=== PATIENT | female | born 1950 | race Two or more races ===

== ENCOUNTER 2018-09-12 13:09 | Emergency (ER) | payer MEDICARE, OTHER ==
[~2018-09-12] VITALS: Ht 165.1 cm; Wt 80.0 kg
[2018-09-12 13:17] VITALS: Ht 165.1 cm; Wt 80.0 kg
--- NOTE | 2018-09-12 13:20 | ERD ---
ER Documentation Chief Complaint Chief Complaint FROM SNF FOR EVAL OF CHRONIC LEFT HIP PAIN HPI The patient is a 68-year-old female, presenting to the ER from a skilled nursing home because of chronic left hip pain. She was taking Percocet and Soma with good response, however her doctor stopped them about 9 months ago. Her new doctor has been prescribing Orefield 10 mg twice a day for the last 9 months. Initially they have been working however they are not working anymore. She is requesting stronger pain medication, denies any trauma, denies cough, neck pain, chest pain, abdominal pain, vomiting, dysuria, diarrhea. She does not smoke, she mostly uses a wheelchair Past medical history: Chronic low back pain, anxiety, hypertension, hypothyroidism, diabetes mellitus, bipolar, dyslipidemia, neuropathy Past surgical history: Left hip and right leg ROS All systems reviewed and are negative except as per history of present illness. Medications Home Meds Reported Medications Multivit with Iron-Minerals (Unicomplex-M) 1 Each Tablet, 1 EACH PO DAILY, TAB 09/12/18 Cran/Vitc/Mannose/Inulin/Brom (Uti-Stat Liquid) 3,875 Mg/30 Ml Liquid, 3875 MG PO BID 09/12/18 Ascorbic Acid* (Vitamin C*) 500 Mg Capsule.sa, 500 MG PO DAILY, CAP 09/12/18 Zolpidem Tartrate* (Zolpidem Tartrate*) 5 Mg Tablet, 5 MG PO QHS PRN for INSOMNIA, #30 TAB 09/12/18 Trazodone Hcl* (Trazodone Hcl*) 100 Mg Tablet, 100 MG PO QHS, #30 TAB 09/12/18 Simvastatin* (Zocor*) 40 Mg Tablet, 40 MG PO QHS, #30 TAB 09/12/18 Quetiapine Fumarate* (Quetiapine Fumarate*) 50 Mg Tablet, 50 MG PO HS, TAB 09/12/18 Calcium Carbonate/Vitamin D3 (Oysco 500+D Tablet) 1 Each Tablet, 1 EACH PO DAILY, TAB 09/12/18 Magnesium Hydroxide* (Milk Of Magnesia*) 400 Mg/5 Ml Oral.susp, 30 ML PO DAILY, ML 09/12/18 Metoprolol Tartrate* (Lopressor*) 25 Mg Tab, 25 MG PO BID, #60 TAB 09/12/18 Metformin Hcl* (Metformin Hcl*) 1,000 Mg Tablet, 1000 MG PO WITH BREAKFAST DINNE, #60 TAB 09/12/18 Loratadine* (Loratadine*) 10 Mg Tablet, 10 MG PO DAILY, #30 TAB 09/12/18 Lisinopril* (Lisinopril*) 5 Mg Tablet, 5 MG PO DAILY, #30 TAB 09/12/18 Levothyroxine Sodium* (Levoxyl*) 200 Mcg Tablet, 200 MCG PO BEFORE BREAKFAST, #30 TAB 09/12/18 Bisacodyl* (Bisacodyl*) 5 Mg Tablet.dr, 5 MG PO DAILY, TAB 09/12/18 Fluticasone-Vilanterol (Breo Ellipta Inhaler) 100-25 Mcg/Actuation Aer.pow.ba, 1 PUFF INHALATION DAILY, #1 INHALER 09/12/18 Citalopram Hydrobromide* (Celexa*) 20 Mg Tablet, 20 MG PO DAILY, #30 TAB 09/12/18 Clonidine (CLONIDINE) 1 Each Patch.tdwk, 1 PATCH.WK TD Q7D, #4 PATCH.WK 0.1MG 09/12/18 Clonidine Hcl* (Clonidine Hcl*) 0.1 Mg Tab, 0.1 MG PO Q8 PRN for ELEVATED BLOOD PRESSURE, TAB FOR SBP >160 09/12/18 Docusate Sodium* (Dok*) 100 Mg Tablet, 100 MG PO BID, #60 CAP 09/12/18 Na Phos,M-B/Na Phos,Di-Ba (ENEMA [id number]) 133 Ml Enema, 133 ML RC EVERY 3 DAYS PRN for CONSTIPATION, ENEMA 09/12/18 Esomeprazole Mag Trihydrate (Nexium) 40 Mg Capsule.dr, 40 MG PO DAILY, #30 CAP 09/12/18 Furosemide* (Furosemide*) 20 Mg Tablet, 20 MG PO DAILY, #60 TAB HOLD FOR SBP<110 09/12/18 Gabapentin* (Gabapentin*) 300 Mg Capsule, 300 MG PO TID, #90 CAP 09/12/18 Bisacodyl (Dulcolax) 10 Mg Supp.rect, 10 MG RC PRN PRN for CONSTIPATION, SUPP.RECT 09/12/18 Baclofen* (Baclofen*) 10 Mg Tablet, 10 MG PO TID, TAB 09/12/18 Aspirin (Low Dose Aspirin) 81 Mg Tablet.dr, 81 MG PO DAILY, #30 TAB 09/12/18 Amlodipine Besylate* (Norvasc*) 5 Mg Tablet, 5 MG PO DAILY, TAB HOLD FOR SBP <110 09/12/18 Allergies Allergies: Coded Allergies: Penicillins (Verified Allergy, Unknown, 09/12/18) amoxicillin (Verified Allergy, Unknown, 09/12/18) Uncoded Allergies: ERYTHROMYCIN (Allergy, Unknown, 09/12/18) Physical Exam Vitals Vital Signs Date Temp Pulse Resp B/P (MAP) Pulse Ox O2 O2 Flow FiO2 Time Delivery Rate 09/12/18 98.4 84 16 143/54 99 Room Air 16:24 (83) 09/12/18 76 20 144/67 99 Room Air 15:15 (92) 09/12/18 98.4 90 16 154/72 99 13:17 (99) Physical Exam Const: No acute distress. Head: Atraumatic. Eyes: Normal Conjunctiva. ENT: Normal External Ears, Nose and Mouth. Neck: Full range of motion. No meningismus. Resp: Clear to auscultation bilaterally. Cardio: Regular rate and rhythm. Abd: Soft, non distended, normal bowel sounds, non tender. Skin: No petechiae or rashes. Back: No midline or flank tenderness. Ext: No cyanosis, or edema. Sensitive to touch, mild and vague bilateral calf tenderness Neur: Awake and alert. No focal deficit Psych: Normal Mood and Affect. Results 24 hrs Current Medications Medications Dose Sig/Mehdi Start Time Status Last (Trade) Ordered Route PRN Stop Time Admin Dose Reason Admin Oxycodone/ 1 tab ONCE ONCE 09/12/18 DC 09/12/18 Acetaminophen PO 14:00 14:42 (Endocet 09/12/18 14:01 ()) 350 mg ONCE ONCE 09/12/18 DC 09/12/18 Carisoprodol PO 14:00 14:42 (Soma) 09/12/18 14:01 Procedures/[place] [id number] Radiology Main Line: [phone] DIAGNOSTIC IMAGING REPORT Patient: ESSENCE GALLAGHER : 1950 Age: 68 Sex: F MR #: [id number] DOS: 09/12/18 1333 Ordering MD: BRIDGET KELLEY MD Location: E/R Room/Bed: PROCEDURE: US Lower extremity Venous. CLINICAL INDICATION: Bilateral lower extremity edema TECHNIQUE: Multiple sonographic images of the bilateral lower extremity deep venous system was obtained utilizing grayscale, color-flow, compressive sonography and doppler imaging with augmentation. The images were reviewed on a PACS workstation. COMPARISON: None. FINDINGS: There is normal compressibility and flow within the bilateral common femoral, femoral , posterior tibial and popliteal veins. RPTAT: AA IMPRESSION: No sonographic evidence for deep venous thrombosis. .Chris Kay MD, MD Date Time Electronically viewed and signed by .Chris Kay MD, MD on 09/12/2018 15:10 .S/ CC: BRIDGET KELLEY MD [id number] MEDICAL MAKING DECISION: The patient is a 68-year-old female, presenting with chronic left hip pain, was treated with Orefield 10 mg p.o. and Soma for her chronic pain with good response, stable for present follow-up The differential diagnoses considered include but are not limited to septic joint, cellulitis, DVT, dehydration Consultation: I discussed the patient with her physician Dr. Stafford, who was made aware of the patient condition and the need for increased pain medication and pain management referral Departure Diagnosis: Primary Impression: Chronic pain Condition: Good Comments I discussed the findings with the patient. I advised the patient to follow-up with the primary physician in about 2-3 days, sooner if needed and return if any concern. Disclaimer: Inadvertent spelling and grammatical errors are likely due to EHR/dictation software use and do not reflect on the overall quality of patient care. Also, please note that the electronic time recorded on this note does not necessarily reflect the actual time of the patient encounter. BRIDGET KELLEY MD Sep 12, 2018 13:20
[2018-09-12] MEDS ORDERED: CARISOPRODOL 350 MG TAB PO ONE (14:00)
[2018-09-12] MEDS ORDERED: OXYCODONE/ACETAMINOPHEN (10/325) TAB PO ONE (14:00)
[2018-09-12] MEDS ORDERED: AMLO5TAB4 PO (14:23)
[2018-09-12] MEDS ORDERED: ASPI81TA52 PO (14:23)
[2018-09-12] MEDS ORDERED: BACL10TA PO (14:24)
[2018-09-12] MEDS ORDERED: BISA10SU55 RC (14:25)
[2018-09-12] MEDS ORDERED: FURO20TA3 PO (14:26)
[2018-09-12] MEDS ORDERED: GABA300C16 PO (14:26)
[2018-09-12] MEDS ORDERED: DOCU100T PO (14:27)
[2018-09-12] MEDS ORDERED: NA P133E10 RC (14:27)
[2018-09-12] MEDS ORDERED: ESOM40CA PO (14:27)
[2018-09-12] MEDS ORDERED: CLON-379 PO (14:29)
[2018-09-12] MEDS ORDERED: CLON1PAT TD (14:31)
[2018-09-12] MEDS ORDERED: CITA20TA11 PO (14:31)
[2018-09-12] MEDS ORDERED: FLUT1AER INHALATION (14:32)
[2018-09-12] MEDS ORDERED: BISA5TAB6 PO (14:33)
[2018-09-12] MEDS ORDERED: LEVO200T45 PO (14:37)
[2018-09-12] MEDS ORDERED: LISI-313 PO (14:37)
[2018-09-12] MEDS ORDERED: LORA10TA3 PO (14:38)
[2018-09-12] MEDS ORDERED: METF100010 PO (14:38)
[2018-09-12] MEDS ORDERED: METO-448 PO (14:39)
[2018-09-12] MEDS ORDERED: CALC1TAB79 PO (14:41)
[2018-09-12] MEDS ORDERED: MAGN400O19 PO (14:41)
[2018-09-12] MEDS ORDERED: QUET50TA22 PO (14:42)
[2018-09-12] MEDS ORDERED: SIMV40TA2 PO (14:43)
[2018-09-12] MEDS ORDERED: TRA100 PO (14:43)
[2018-09-12] MEDS ORDERED: ASCO500C7 PO (14:44)
[2018-09-12] MEDS ORDERED: ZOLP5TAB7 PO (14:44)
[2018-09-12] MEDS ORDERED: CRAN3875 PO (14:44)
[2018-09-12] MEDS ORDERED: MULT1TAB67 PO (14:45)
[2018-09-12 16:24] VITALS: BP 143/54; PULSE 84; RESP 16
== END 2018-09-12 18:31 | disposition home or self-care (01) ==
LOC: E/R 13:09
DX: M25.552 Pain in left hip (principal); I10 Essential (primary) hypertension; E03.9 Hypothyroidism, unspecified; E11.9 Type 2 diabetes mellitus without complications; Z79.84 Long term (current) use of oral hypoglycemic drugs; Z79.82 Long term (current) use of aspirin
CPT/HCPCS: 93970

== ENCOUNTER 2019-01-17 20:58 | Inpatient (IN) | payer MEDICARE, OTHER ==
[~2019-01-17] VITALS: Ht 162.6 cm; Wt 74.1 kg
[~2019-01-17 20:58] MED LIST: ACET-2047 PO; AMLO5TAB4 PO; ASCO500C7 PO; ASPI81TA52 PO; BACL10TA PO; BISA10SU55 RC; BISA5TAB6 PO; CALC1TAB79 PO; CITA20TA11 PO; CLON-379 PO; CLON1PAT TD; CRAN3875 PO; CRAN425C6 PO; DOCU100T PO; ESOM40CA PO; FLUT1AER INHALATION; FURO20TA3 PO; GABA300C16 PO; HYDR-3609 PO; HYDR-4011 PO; LEVO200T45 PO; LEVO50TA71 PO; LISI-313 PO; LORA10TA3 PO; LUBI24CA7 PO; MAGN400O19 PO; METF100010 PO; METO-448 PO; MULT-542 PO; MULT1TAB67 PO; NA P133E10 RC; NITR0.4T39 SL; ONDA4TAB8 PO; PANT40TA3 PO; QUET50TA22 PO; SIMV20TA PO; SIMV40TA2 PO; TRA100 PO; UDFER GTB; ZINC220C5 PO; ZOLP5TAB PO; ZOLP5TAB7 PO
--- NOTE | 2019-01-17 21:22 | ERD ---
ER Documentation Chief Complaint Chief Complaint Generalized Weakness, Poor intake HPI The patient is a 68-year-old female, presenting to the ER because of generalized weakness, decreased appetite bilateral leg pain. She is a very poor historian, very somnolent but arousable. He denies fever, chills, neck pain, chest pain, dyspnea, abdominal pain, vomiting, dysuria, diarrhea. She is wheelchair-bound, from assisted living home. She denies smoking or drinking Medical history: Hypothyroidism, diabetes mellitus, chronic left hip pain, anxiety, hypertension, bipolar, dyslipidemia ROS All systems reviewed and are negative except as per history of present illness. Medications Home Meds Reported Medications Multivit with Iron-Minerals (Unicomplex-M) 1 Each Tablet, 1 EACH PO DAILY, TAB 09/12/18 Cran/Vitc/Mannose/Inulin/Brom (Uti-Stat Liquid) 3,875 Mg/30 Ml Liquid, 3875 MG PO BID 09/12/18 Ascorbic Acid* (Vitamin C*) 500 Mg Capsule.sa, 500 MG PO DAILY, CAP 09/12/18 Zolpidem Tartrate* (Zolpidem Tartrate*) 5 Mg Tablet, 5 MG PO QHS PRN for INSOMNIA, #30 TAB 09/12/18 Trazodone Hcl* (Trazodone Hcl*) 100 Mg Tablet, 100 MG PO QHS, #30 TAB 09/12/18 Simvastatin* (Zocor*) 40 Mg Tablet, 40 MG PO QHS, #30 TAB 09/12/18 Quetiapine Fumarate* (Quetiapine Fumarate*) 50 Mg Tablet, 50 MG PO HS, TAB 09/12/18 Calcium Carbonate/Vitamin D3 (Oysco 500+D Tablet) 1 Each Tablet, 1 EACH PO DAILY, TAB 09/12/18 Magnesium Hydroxide* (Milk Of Magnesia*) 400 Mg/5 Ml Oral.susp, 30 ML PO DAILY, ML 09/12/18 Metoprolol Tartrate* (Lopressor*) 25 Mg Tab, 25 MG PO BID, #60 TAB 09/12/18 Metformin Hcl* (Metformin Hcl*) 1,000 Mg Tablet, 1000 MG PO WITH BREAKFAST DINNE, #60 TAB 09/12/18 Loratadine* (Loratadine*) 10 Mg Tablet, 10 MG PO DAILY, #30 TAB 09/12/18 Lisinopril* (Lisinopril*) 5 Mg Tablet, 5 MG PO DAILY, #30 TAB 09/12/18 Levothyroxine Sodium* (Levoxyl*) 200 Mcg Tablet, 200 MCG PO BEFORE BREAKFAST, #30 TAB 09/12/18 Bisacodyl* (Bisacodyl*) 5 Mg Tablet.dr, 5 MG PO DAILY, TAB 09/12/18 Fluticasone-Vilanterol (Breo Ellipta Inhaler) 100-25 Mcg/Actuation Aer.pow.ba, 1 PUFF INHALATION DAILY, #1 INHALER 09/12/18 Citalopram Hydrobromide* (Celexa*) 20 Mg Tablet, 20 MG PO DAILY, #30 TAB 09/12/18 Clonidine (CLONIDINE) 1 Each Patch.tdwk, 1 PATCH.WK TD Q7D, #4 PATCH.WK 0.1MG 09/12/18 Clonidine Hcl* (Clonidine Hcl*) 0.1 Mg Tab, 0.1 MG PO Q8 PRN for ELEVATED BLOOD PRESSURE, TAB FOR SBP >160 09/12/18 Docusate Sodium* (Dok*) 100 Mg Tablet, 100 MG PO BID, #60 CAP 09/12/18 Na Phos,M-B/Na Phos,Di-Ba (ENEMA [id number]) 133 Ml Enema, 133 ML RC EVERY 3 DAYS PRN for CONSTIPATION, ENEMA 09/12/18 Esomeprazole Mag Trihydrate (Nexium) 40 Mg Capsule.dr, 40 MG PO DAILY, #30 CAP 09/12/18 Furosemide* (Furosemide*) 20 Mg Tablet, 20 MG PO DAILY, #60 TAB HOLD FOR SBP<110 09/12/18 Gabapentin* (Gabapentin*) 300 Mg Capsule, 300 MG PO TID, #90 CAP 09/12/18 Bisacodyl (Dulcolax) 10 Mg Supp.rect, 10 MG RC PRN PRN for CONSTIPATION, SUPP.RECT 09/12/18 Baclofen* (Baclofen*) 10 Mg Tablet, 10 MG PO TID, TAB 09/12/18 Aspirin (Low Dose Aspirin) 81 Mg Tablet.dr, 81 MG PO DAILY, #30 TAB 09/12/18 Amlodipine Besylate* (Norvasc*) 5 Mg Tablet, 5 MG PO DAILY, TAB HOLD FOR SBP <110 09/12/18 Allergies Allergies: Coded Allergies: Penicillins (Verified Allergy, Unknown, 09/12/18) amoxicillin (Verified Allergy, Unknown, 09/12/18) Uncoded Allergies: ERYTHROMYCIN (Allergy, Unknown, 09/12/18) PMhx/Soc Hx Miscellaneous Medical Probl: Yes (THYROID, DM) Hx Alcohol Use: No Hx Substance Use: No Hx Tobacco Use: No Physical Exam Vitals Vital Signs Date Temp Pulse Resp B/P (MAP) Pulse Ox O2 O2 Flow FiO2 Time Delivery Rate 01/17/19 98.9 75 97/44 (61) 100 Nasal 2.0 23:57 Cannula 01/17/19 99.1 80 14 92/37 (55) 98 Nasal 2.0 22:20 Cannula 01/17/19 98.3 80 11 101/47 100 21:07 (65) Physical Exam Const: No acute distress. Dehydrated Head: Atraumatic. Eyes: Normal Conjunctiva. ENT: Normal External Ears, Nose and Mouth. Neck: Full range of motion. No meningismus. Resp: Clear to auscultation bilaterally. Cardio: Regular rate and rhythm. Abd: Soft, non distended, normal bowel sounds, non tender. Skin: No petechiae or rashes. Back: No midline or flank tenderness. Ext: No cyanosis, or edema. No calf tenderness Neur: Awake and alert. No focal deficit Psych: Normal Mood and Affect. Result Diagram: 01/17/19220101/17/192201 Results 24 hrs Laboratory Tests Test 01/17/19 22:02 01/17/19 22:36 01/17/19 23:33 White Blood Count 6.1 10^3/ul Red Blood Count 2.52 10^6/ul Hemoglobin 8.1 g/dl Hematocrit 24.8 % Mean Corpuscular Volume 98.4 fl Mean Corpuscular Hemoglobin 32.1 pg Mean Corpuscular 32.7 g/dl Hemoglobin Concent Red Cell Distribution Width 13.0 % Platelet Count 106 10^3/UL Mean Platelet Volume 10.7 fl Immature Granulocytes % 0.700 % Neutrophils % 69.5 % Lymphocytes % 20.4 % Monocytes % 6.6 % Eosinophils % 2.6 % Basophils % 0.2 % Nucleated Red Blood Cells % 0.0 /100WBC Immature Granulocytes # 0.040 10^3/ul Neutrophils # 4.2 10^3/ul Lymphocytes # 1.2 10^3/ul Monocytes # 0.4 10^3/ul Eosinophils # 0.2 10^3/ul Basophils # 0.0 10^3/ul Nucleated Red Blood Cells # 0.0 10^3/ul Prothrombin Time 13.1 Sec Prothrombin Time Ratio 1.0 INR International 0.98 Normalized Ratio Activated Partial Thromboplast 28.3 Sec Time Sodium Level 137 mmol/L Potassium Level 5.6 mmol/L Chloride Level 109 mmol/L Carbon Dioxide Level 17 mmol/L Anion Gap 11 Blood Urea Nitrogen 60 mg/dl Creatinine 4.56 mg/dl Est Glomerular Filtrat 10 mL/min Rate mL/min Glucose Level 99 mg/dl Calcium Level 8.9 mg/dl Total Bilirubin 0.2 mg/dl Direct Bilirubin 0.00 mg/dl Indirect Bilirubin 0.2 mg/dl Aspartate Amino 35 IU/L Transf (AST/SGOT) Alanine 31 IU/L Aminotransferase (ALT/SGPT) Alkaline Phosphatase 88 IU/L Troponin I < 0.012 ng/ml Total Protein 7.4 g/dl Albumin 3.5 g/dl Globulin 3.90 g/dl Albumin/Globulin Ratio 0.89 Thyroid Stimulating 1.170 MIU/L Hormone (TSH) Ethyl Alcohol Level < 10.0 mg/dl POC Venous Lactate 1.1 mmol/L Urine Color YELLOW Urine Clarity TURBID Urine pH 5.0 Urine Specific [place] 1.008 Urine Ketones TRACE mg/dL Urine Nitrite NEGATIVE mg/dL Urine Bilirubin NEGATIVE mg/dL Urine Urobilinogen NEGATIVE mg/dL Urine Leukocyte Esterase 3+ Esther/ul Urine Microscopic RBC 25 /HPF Urine Microscopic WBC > 182 /HPF Urine Bacteria MANY /HPF Urine Mucus FEW /HPF Urine Hemoglobin 1+ mg/dL Urine Glucose NEGATIVE mg/dL Urine Total Protein 2+ mg/dl Urine Opiates Screen POSITIVE Urine Barbiturates NEGATIVE Urine Amphetamines Screen NEGATIVE Urine Benzodiazepines Screen NEGATIVE Urine Cocaine Screen NEGATIVE Urine Cannabinoids NEGATIVE Current Medications Medications Dose Sig/Mehdi Start Time Status Last (Trade) Ordered Route PRN Stop Time Admin Dose Reason Admin Sodium 2,110 ml BOLUS OVER 2 01/17/19 DC 01/17/19 Chloride HOURS STAT 21:50 22:19 (NS) IV* 01/17/19 21:52 Sodium 30 gm ONCE ONCE 01/17/19 DC Polystyrene PO 23:00 Sulfonate 01/17/19 23:01 (Kayexalate) Sodium 1,000 ml @ [id number] IV 01/17/19 Chloride 70 mls/hr 22:57 IV Flush 3 ml PER 01/17/19 (NS 3 ml) PROTOCOL IV 23:00 Ondansetron 4 mg Q6H PRN 01/17/19 HCl (Zofran IV 23:00 Inj) NAUSEA/VOMITI NG 650 mg Q6H PRN 01/17/19 Acetaminophen PO .PAIN 1-3 23:00 (Tylenol OR TEMP Tab) 1 tab Q6H PRN 01/17/19 Acetaminophen PO .PAIN 4-6 23:00 / Hydrocodone Bitart ([place] (5/325)) Morphine 2 mg Q4H PRN 01/17/19 Sulfate IV .PAIN 23:00 (morphine) 7-10 Docusate 100 mg Q12H PRN 01/17/19 Sodium PO 23:00 (Colace) .CONSTIPATION Magnesium 30 ml DAILY PRN 01/17/19 Hydroxide PO 23:00 (Milk Of Mag) .CONSTIPATION 40 mg DAILY@06 01/18/19 Pantoprazole PO 06:00 (Protonix Tab) Heparin 5,000 unit Q12 SC 01/18/19 Sodium 09:00 (Porcine) (Heparin (5000 Units/1ml)) Aspirin 81 mg DAILY PO 01/18/19 (Halfprin) 09:00 Citalopram 20 mg DAILY PO 01/18/19 Hydrobromide 09:00 (Celexa) Docusate 100 mg BID PO 01/18/19 Sodium 09:00 (Colace) 1 inh DAILY INH 01/18/19 Fluticasone/ 09:00 Vilanterol (Breo Ellipta 100-25 Mcg Inh) Gabapentin 300 mg TID PO 01/18/19 (Neurontin) 09:00 200 mcg BEFORE 01/18/19 Levothyroxine BREAKFAST 07:00 Sodium PO (Synthroid) Loratadine 10 mg DAILY PO 01/18/19 (Claritin) 09:00 Procedures/[place] [id number] Radiology Main Line: [phone] DIAGNOSTIC IMAGING REPORT Patient: ESSENCE GALLAGHER : 1950 Age: 68 Sex: F MR #: [id number] DOS: 01/17/19 2201 Ordering MD: BRIDGET KELLEY MD Location: E/R Room/Bed: PROCEDURE: CT BRAIN WITHOUT CONTRAST CLINICAL INDICATION: Altered level of consciousness. TECHNIQUE: Transaxial CT examination of the head was performed without intravenous administration of contrast on a [employer] helical CT scanner. In addition to the brain and bone windows of transaxial images, multiple sagittal and coronal reformatted images were generated for the interpretation. DICOM images are available. Radiation dose: CTDIvol = 39 mGy; total DLP = 699 mGy-cm. One or more of the following dose reduction techniques were used: - Automated exposure control. - Adjustment of the mA and/or kV according to patient size. - Use of iterative reconstruction technique. COMPARISON: CT examination of 07/31/2018. FINDINGS: Evaluation of the supratentorial compartment demonstrates no appreciable recent cerebral infarction, hemorrhage, mass effect, midline shift, or abnormal extra- axial fluid collection. Approximately 5-6 mm old lacunar infarction at the mid right basal ganglia (series 2, image 12) and 2-3 mm old lacunar infarction at the mid left basal ganglia (series 2, image 12) are suggested. Mild to moderate enlargement of the ventricles and cortical sulci in a pattern of atrophy there is normal for the age. Mild periventricular and subcortical white matter hypoattenuation density is present, which is most likely due to age related microvascular change. Evaluation of the posterior fossa reveals no hemorrhage, infarction, or mass effect. Mild atrophic change is compatible with the age of patient. The cerebellar tonsils are in normal position relative to the foramen magnum. The skull is intact without abnormal bone density or destructive lesion. A partial visualization of thickened bony knight of the visualized apex of left maxillary sinus could be due to an element of chronic sinusitis.. Bilateral mastoid air cells and the remaining visualized paranasal sinuses are normally aerated. IMPRESSION: 1. No appreciable recent cerebral infarction, hemorrhage, or hydrocephalus. 2. 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 3. Mild age related microvascular change. 4. No significant interval change. RPTAT: EE Physician Linda Date Time Electronically viewed and signed by Quang Ennis Physician on 01/17/2019 23:06 PH/ CC: BRIDGET KELLEY MD [id number] [place] [address] Radiology Main Line: [phone] DIAGNOSTIC IMAGING REPORT Patient: ESSENCE GALLAGHER : 1950 Age: 68 Sex: F MR #: [id number] DOS: 01/17/19 2150 Ordering MD: BRIDGET KELLEY MD Location: E/R Room/Bed: PROCEDURE: XR Chest. CLINICAL INDICATION: Shortness of breath TECHNIQUE: Single portable view of the chest was obtained COMPARISON: CR CHEST 09/28/2018; SD CR CHEST 08/01/2018; SD CR CHEST 06/22/2018; SD DX CHEST 06/29/2017; DX CHEST 05/01/2017; SD DX CHEST 08/10/2016 FINDINGS: The trachea is midline. The cardiac silhouette and pulmonary vascularity are within normal limits. The lungs are clear. The costophrenic angles are sharp. There is atherosclerotic calcification of the aortic knob. IMPRESSION: 1. Atherosclerotic disease of the aorta. No evidence of acute cardiopulmonary disease. RPTAT: AAPP Physician Kenny Date Time Electronically viewed and signed by Physician Kenny on 01/17/2019 22:47 JL/ CC: BRIDGET KELLEY MD [phone] EKG: Read by emergency physician Rate/Rhythm: Normal Sinus Rhythm 77 beats/min QRS, ST, T-waves: No ST elevation, no T inversion, low voltage Impression: Abnormal EKG MEDICAL MAKING DECISION: The patient is a 68-year-old female, presenting with acute encephalopathy acute, kidney injury, acute cystitis, acute hyperkalemia. She was treated with normal saline 30 mm/kg IV for acute dehydration, Vargas catheter due to acute kidney injury, Kayexalate 30 g p.o. for acute hyperkalemia, Cipro IV for acute cystitis The differential diagnoses considered include but are not limited to metabolic encephalopathy, septic encephalopathy, delirium, UTI, pyelonephritis, pneumonia Critical Care: Time: 35 minutes excluding all billable procedures. Treatments/Evaluations: Close monitoring and treatment of unstable vital signs, cardiorespiratory, and neurologic status, while maintaining tight balance of fluid, respiratory, and cardiac interventions. Departure Diagnosis: Primary Impression: Encephalopathy acute Additional Impressions: Acute kidney injury Hyperkalemia UTI (urinary tract infection) Anemia Thrombocytopenia Condition: Stable Comments I discussed the findings with the patient. I notified the patient with Dr. Stafford at 10:55p via [employer], who was made aware of the lab, the treatment, the patient condition. The patient is admitted to Tel Disclaimer: Inadvertent spelling and grammatical errors are likely due to EHR/dictation software use and do not reflect on the overall quality of patient care. Also, please note that the electronic time recorded on this note does not necessarily reflect the actual time of the patient encounter. BRIDGET KELLEY MD Jan 17, 2019 21:22
[2019-01-17] MEDS ORDERED: SODIUM CHLORIDE 0.9% 1L BAG IV* STA (21:50)
[2019-01-17] MEDS: SOD CHLORIDE 0.9% 1,000 ML IV SCH (22:57)
[2019-01-17] MEDS ORDERED: NACL 0.9% 3 ML SYG IV SCH (23:00)
[2019-01-17] MEDS ORDERED: MAGNESIUM HYDROXIDE 30ML CUP PO PRN (23:00)
[2019-01-17] MEDS ORDERED: NA POLYST SULFON 15 GM/60 ML BTL PO ONE (23:00)
[2019-01-17] MEDS ORDERED: DOCUSATE SODIUM 100 MG CAP PO PRN (23:00)
[2019-01-18] MEDS ORDERED: CIPROFLOXACIN 200 MG/D5W IVPB 100 ML IVPB ONE (00:30)
[2019-01-18] MEDS ORDERED: NALOXONE (0.4 MG/ML) INJ IV ONE (01:00)
[2019-01-18 03:26] VITALS: BP 116/57; PULSE 74; RESP 22; Ht 162.6 cm; Wt 74.1 kg
[2019-01-18 04:04] VITALS: BP 105/52; PULSE 79; RESP 19
[2019-01-18] MEDS: SOD CHLORIDE 0.9% 1,000 ML IV SCH ×2 (04:52→17:48)
[2019-01-18] MEDS: PANTOPRAZOLE (EC) 40 MG TAB PO SCH (05:49)
[2019-01-18] MEDS ORDERED: LEVOTHYROXINE 100 MCG TAB PO SCH (07:00)
[2019-01-18 07:34] VITALS: BP 114/53; PULSE 75; RESP 20
[2019-01-18] MEDS: ASPIRIN (EC) 81 MG TAB PO SCH (08:50)
[2019-01-18] MEDS: CITALOPRAM 20 MG TAB PO SCH (08:51)
[2019-01-18] MEDS: LORATADINE 10 MG TAB PO SCH (08:51)
[2019-01-18] MEDS: GABAPENTIN 300 MG CAP PO SCH ×3 (08:51→21:28)
[2019-01-18] MEDS: DOCUSATE SODIUM 100 MG CAP PO SCH ×2 (08:51→21:29)
[2019-01-18] MEDS: FLUTICASONE/VILANTEROL 100-25 INH SCH (08:51)
[2019-01-18] MEDS: HEPARIN 5,000 UNIT/1 ML VIAL SC SCH ×2 (08:53→21:36)
[2019-01-18] MEDS: CEFTRIAXONE 1 GM/50 ML (PMX) 50 ML IVPB SCH (08:54)
[2019-01-18 11:03] VITALS: BP 104/55; PULSE 86; RESP 20
[2019-01-18] MEDS: HYDROCODONE/APAP (5/325) TAB PO PRN ×2 (13:39→21:39)
[2019-01-18 15:26] VITALS: BP 116/58; PULSE 76; RESP 20
--- NOTE | 2019-01-18 19:24 | HP ---
DATE OF ADMISSION: 01/17/2019 REASON FOR ADMISSION: Encephalopathy, acute renal failure, urinary tract infection, metabolic acidos is. HISTORY OF PRESENT ILLNESS: The patient is a 68-year-old overweight female with history of hypertension, anxiety disorder, chronic pain syndrome, mild COPD, depression, [place], congestive heart f ailure, diabetic neuropathy, diabetes mellitus, hypothyroidism, psychiatric disorder who resides at [facility]. The patient was seen by her home health nurse who stat ed that the patient appears to be more weak and has generalized body ache, including chest pain. The patient was noted to be more confused, and she was brought into the emergency department upon my req uest for evaluation. In the ER, the patient was noted to be profoundly anemic with hemoglobin of 8.1 with significant renal failure with a BUN of 60, with a creatinine of 4.56, suggestive of profound r enal failure. In addition, potassium was high at 5.6. Further testing revealed evidence of UTI with +3 leukocyte esterase and WBC greater than 182. Lactic acid was normal at 1.1. Ultimately, the pat ient in the ER received IV hydration and antibiotics with ciprofloxacin as PATIENT HAS MULTIPLE DRUG ALLERGIES. The patient was then admitted to the telemetry unit for further medical management. Upon evaluation, the patient did complain of being weak but overall could not tell me exactly further his tory. She did report total body ache. The patient is admitted for further care. Currently, denies chest pain, denies shortness of breath. The patient states that she has been nonambulatory for more than 10 months, and mostly she is in a wheelchair. The patient is not aware that she has renal failu re. The patient never had a colonoscopy. The patient is admitted. PAST MEDICAL HISTORY: Includes hypertension, congestive heart failure, [place], ASCVD, depression, COPD, chronic pain syndrome, diabetic neuropathy, diabetes mellitus, hypothyroidism, psychiatric disorder. ALLERGIES: 1. TETRACYCLINE. 2. PENICILLIN. 3. AMOXICILLIN. 4. ERYTHROMYCIN. FAMILY HISTORY: There is an extensive history of alcohol use in the family. Otherwise, the patient does not know further history. SOCIAL HISTORY: The patient used to be a social smoker, smoking maybe 1 cigarette a day until her 30 s. Alcohol positive in the past. IV drug abuse denies. The patient is . She has 2 kids. SURGICAL HISTORY: Includes appendectomy, total abdominal hysterectomy. MEDICATIONS: The patient's list of medications was reviewed and they include the followin. Amlodipine 5 mg daily. 2. Aspirin 81 mg daily. 3. Baclofen 10 mg half a tab 3 times a day. 4. Suppository Dulcolax p.r.n. 5. Breo Ellipta 100 one puff daily. 6. Citalopram 20 mg daily. 7. Clonidine 0.1 mg q.8 p.r.n. for systolic greater than 160. 8. Diclofenac topical 4 gm q.i.d. 9. Colace 100 mg b.i.d. enema as directed. 9. Esomeprazole 40 mg daily. 10. Lasix 20 mg daily. 11. Gabapentin 20 mg t.i.d. 12. [place] 10/325 q.6 p.r.n. 13. Synthroid 50 mcg daily. 14. Lisinopril 5 mg daily. 15. Loratadine 10 mg daily. 16. Lotrimin cream as directed. 17. Metformin 1000 b.i.d. 18. Metoprolol tartrate 25 b.i.d. 19. Miconazole skin cream as directed. 20. Milk of magnesia p.r.n. 21. Oyster Shay 500 mg 1 tablet daily. 22. Seroquel 50 mg at bedtime. 23. Simvastatin 20 mg at bedtime. 24. Trazodone 100 mg at bedtime. 25. Vitamin C 500 mg twice a day. 26. Zolpidem 5 mg at bedtime. 27. PRN medications include Tylenol. PHYSICAL EXAMINATION: VITAL SIGNS: Temperature 98.8, pulse 86, respirations 20, blood pressure 104/55, saturation 95% on 2 liters. GENERAL: The patient is in no acute distress. The patient is pale, overweight. NECK: No JVD. CARDIOVASCULAR: S1, S2, positive systolic ejection murmur heard throughout. LUNGS: Decreased bilaterally. ABDOMEN: Soft, overweight. EXTREMITIES: There is no clubbing, cyanosis, or edema. Some bruising at the knees, minimal. The p atient is moving all extremities. LABORATORY DATA: White count is 4.5, hemoglobin 7.6, hematocrit 22, platelet count is low at 93, yue trophils 66%, ____23%. Chemistry: Sodium 143, potassium 4.9, chloride 118, bicarbonate 17, BUN is 4 5, creatinine 3.2 ,and glucose of 134. Iron level is low at 43, TIBC low at 238. Percent saturation of iron is 18. Folic acid greater than 20, and B12 is 403. TSH is 1.17. LFTs: AST 35, ALT 36, al kaline phosphatase 81. Urine analysis: Turbid, +1 protein, trace ketones, +1 blood, positive nitrit es, +3 leukocyte esterase, WBC greater than 182, total protein +2. Ethyl alcohol negative, positive opiates, otherwise negative toxicology screen. INR 0.98, PTT 28. The patient's urine culture does s how gram-negative rods greater than 100,000, pending ID and sensitivity. Brain CAT scan done in the ER did show no appreciable recent cerebral infarction, hemorrhage or hydrocephalus. There are 2 old lacunar infarctions, measuring up to 5 to 6 mm, bilateral, mid basal ganglia; mild age-related microv ascular changes; no significant interval change. EKG shows sinus rhythm, low-voltage precordial leads at 76 beats per minute. ASSESSMENT AND PLAN: This is a 68-year-old female with history of congestive heart failure , hypertension, chronic obstructive pulmonary disease, hypothyroidism, diabetes mellitus who presente d with encephalopathy, was found to have acute renal failure, urinary tract infection, and severe ane shira. 1. Respiratory: Noted chest x-ray results. No evidence of fluid overload state. Oxygen support to be provided as needed. Continue Breo. 2. Cardiovascular: The patient with tendency for congestive heart failure with positive heart murmu r. Hold nephrotoxic medications such as angiotensin-converting enzyme inhibitors and diuretics as th ere is no evidence of fluid overload state. May need to hold blood thinners due to thrombocytopenia. Monitor the patient in telemetry unit. Echocardiogram will be obtained. 3. Acute renal failure, likely due to prerenal azotemia. Again, hold nephrotoxic medication. Laine nue gentle hydration. 4. Anemia. The patient with evidence of anemia of chronic disease and iron-deficiency anemia. Woul d transfuse the patient 1 unit of packed red blood cells. Will consult nephrology. Obtain renal ult rasound. 5. Anemia. Will rule out a gastrointestinal bleed. Stool occult blood will be obtained as well. O utpatient colonoscopy is definitely advised unless she is occult blood positive. 6. Infectious disease: The patient with evidence of urinary tract infection. The patient was start ed on Rocephin. No evidence of allergies. Follow up urine culture results. 7. Encephalopathy, likely multifactorial due to dehydration, toxic-metabolic, and due to urinary tra ct infection. The patient is definitely more awake. 8. Generalized body pain. Pain control as tolerated. Will request physical therapy soon. 9. Hypothyroidism. Continue Synthroid. Thyroid-stimulating hormone is at goal. 10. We will follow closely. I left a message with the son over the phone. His name is sherrell Reed e number [phone]. Will keep him informed. Will follow closely. Dictated By: CHASITY PHILIP/JONAS Conf#: [id number] DID#: [id number] CC: CHASITY MCKEON MD;*End*
[2019-01-18 20:00] VITALS: BP 120/58; PULSE 79; RESP 18
--- NOTE | 2019-01-18 20:14 | CONS ---
DATE OF ADMISSION: 01/17/2019 DATE OF CONSULTATION: 01/18/2019 REASON FOR CONSULTATION: Acute kidney injury. REQUESTING PHYSICIAN: Dr. Stafford. HISTORY OF PRESENT ILLNESS: This is a 68-year-old female with a past medical history of CKD with unk nown baseline creatinine, history of hypothyroidism and diabetes, history of anxiety, hypertension, c hronic pain syndrome, history of bipolar disorder, dyslipidemia, presented to the [facility] emergency room due to decreased appetite, bilateral leg pain, generalized weakness. The patient upo n arrival was noted to be somnolent. The patient had a CT scan of the brain on arrival, which showed no evidence of acute findings, evidence of old lacunar infarct. The patient also had a chest x-ray, which showed no evidence of cardiopulmonary disease. In terms of patient's renal history, the patient has a history of CKD. On admission, patient had sweta vated creatinine 4.56 mg/dL. The patient was started on IV hydration with improvement in creatinine 3.2 mg/dL. The patient herself admits to a history of CKD as stated above. She denies any hemoptysi s, hematemesis or hematochezia. Denies any frothy urine. Denies any nausea, vomiting. Denies any m etallic taste in her mouth. PAST MEDICAL HISTORY: See above. History of CKD, history of hypothyroidism, history of diabetes, hi story of hypertension, history of bipolar disorder, dyslipidemia. ALLERGIES: PLEASE SEE LIST. PAST SURGICAL HISTORY: Reviewed. FAMILY HISTORY: Noncontributory. SOCIAL HISTORY: Does not drink, smoke or do drugs. MEDICATIONS: The patient's medications have been reviewed. REVIEW OF SYSTEMS: A 14-point review of systems was conducted. Pertinent positives stated in HPI, o therwise negative. PHYSICAL EXAMINATION: VITAL SIGNS: Blood pressure is 104/55, respirations 20, pulse 86, temperature 98.8. HEENT: Head is normocephalic. NECK: Supple. HEART: Regular rate. LUNGS: Show diminished breath sounds at the base. ABDOMEN: Soft, nontender to palpation without guarding. EXTREMITIES: Negative for clubbing, cyanosis, no edema. DERMATOLOGIC: No rashes. MUSCULOSKELETAL: No joint effusion. NEUROLOGIC: No focal deficits. MEDICATIONS: Has been reviewed. LABORATORY DATA: Has been reviewed. IMAGING STUDIES: Has been reviewed. ASSESSMENT AND PLAN: This is a 68-year-old female who presents with: 1. Nonoliguric acute kidney injury on top of chronic kidney disease with unknown baseline creatinine . Etiology of acute kidney injury is likely multifactorial secondary to hemodynamics, TIESHA inhibitor, diuretics, volume depletion. The patient's urinalysis does show evidence of pyuria and proteinuria, although suspicion is low for acute infectious nephritis at this time. Recommendation at this point is to do a full evaluation. We will repeat urinalysis with microanalysis. We will quantify patient 's proteinuria and calculate a FENa. Agree with IV antibiotics and IV fluids. We will also check a renal ultrasound to evaluate renal parenchyma. Otherwise, continue supportive care, renally dose all meds, avoid nephrotoxins. 2. Anemia with iron deficiency. Patient will be started on IV Prilosec. 3. Hyperkalemia secondary to acute kidney injury, improved. Continue to monitor. The patient to be placed on renal diet. 4. Metabolic acidosis secondary to acute kidney injury. Continue to monitor. No immediate need for bicarbonate therapy. 5. Mineral bone disorder. We will monitor calcium and phosphorus levels, check vitamin D level, claudia ck PTH level. 6. Urinary tract infection. Continue antibiotic therapy. Follow up cultures. 7. Thrombocytopenia. Continue to monitor. 8. Encephalopathy. Etiology possibly metabolic, questionably uremic. Continue to monitor closely. 9. Generalized weakness, possibly due to acute kidney injury, questionable uremia. Continue to buck tor. Other possibilities include medications. Consider physical therapy evaluation. Thank you, Dr. Stafford, for this interesting consult. It will be a pleasure to follow patient with you . Dictated By: BRANDON SHHA DO NR/NTS Conf#: [id number] DID#: [id number] CC: CHASITY STAFFORD MD;*EndCC*
[2019-01-18] MEDS: BALSAM PERU/CASTOR OIL 60 GM TUBE TOP SCH (21:29)
[2019-01-18] MEDS: ZOLPIDEM 5 MG TAB PO PRN (23:59)
[2019-01-19] VITALS: BP 139/59; PULSE 71; RESP 19
[2019-01-19 04:13] VITALS: BP 123/62; RESP 20
[2019-01-19] MEDS: LEVOTHYROXINE 50 MCG TAB PO SCH (06:02)
[2019-01-19] MEDS: PANTOPRAZOLE (EC) 40 MG TAB PO SCH (06:02)
[2019-01-19] MEDS ORDERED: MAGNESIUM SULFATE 2 GM/50 ML 50 ML IVPB ONE (07:30)
[2019-01-19 07:34] VITALS: BP 102/67; PULSE 72; RESP 18
--- NOTE | 2019-01-19 08:14 | PN ---
DATE: 01/19/2019 SUBJECTIVE: The patient is stable, no events and vomiting. OBJECTIVE: VITAL SIGNS: Blood pressure 123/62, respirations 20, pulse 71, temperature 98.8. HEENT: Head is normocephalic. NECK: Supple. HEART: Regular rate. LUNGS: Show diminished breath sounds at the base. ABDOMEN: Soft, nontender to palpation without rebound or guarding. EXTREMITIES: Negative for clubbing, cyanosis, no edema. DERMATOLOGIC: No rashes. MUSCULOSKELETAL: No joint effusion. NEUROLOGIC: No change in exam. MEDICATIONS: Have been reviewed. LABORATORY DATA: Has been reviewed. IMAGING STUDIES: Have been reviewed. ASSESSMENT AND PLAN: 1. Nonoliguric acute kidney injury on top of chronic kidney disease with unknown baseline creatinine . Etiology of acute kidney injury is secondary to hemodynamics, diuretics, TIESHA inhibitor effect. Th e patient's renal function is improving with IV fluids. Renal ultrasound was reviewed, showed increa sed echogenicity consistent with CKD, but no obstruction. RECOMMENDATIONS: 1. Continue IV fluids. We will deescalate rate to 50 mL an hour. Continue antibiotic therapy. Oth erwise, continue supportive care, renally dose all meds. 2. Anemia of iron deficiency. Continue IV Ferrlecit. Monitor hemoglobin and hematocrit levels. 3. Hyperkalemia, secondary to acute kidney injury, improved. 4. Metabolic acidosis secondary to acute kidney injury, IV fluids. Continue to monitor. 5. Mineral bone disorder, monitor calcium and phosphorus levels. We will follow up vitamin D and PT H levels. 6. Urinary tract infection. Continue current antibiotic therapy. 7. Thrombocytopenia. Continue to monitor. 8. Encephalopathy, improving. 9. Generalized weakness. Continue to monitor. Continue physical therapy. 10. Hypomagnesemia. Replete with magnesium sulfate. Dictated By: BRANDON SHAH DO NR/NTS Conf#: [id number] DID#: [id number] CC: CHASITY MCKEON MD;*EndCC*
[2019-01-19] MEDS: CEFTRIAXONE 1 GM/50 ML (PMX) 50 ML IVPB SCH (09:15)
[2019-01-19] MEDS: FLUTICASONE/VILANTEROL 100-25 INH SCH (09:15)
[2019-01-19] MEDS: BALSAM PERU/CASTOR OIL 60 GM TUBE TOP SCH ×2 (09:15→20:58)
[2019-01-19] MEDS: GABAPENTIN 300 MG CAP PO SCH ×3 (09:18→20:57)
[2019-01-19] MEDS: ASPIRIN (EC) 81 MG TAB PO SCH (09:18)
[2019-01-19] MEDS: DOCUSATE SODIUM 100 MG CAP PO SCH ×2 (09:19→20:56)
[2019-01-19] MEDS: CITALOPRAM 20 MG TAB PO SCH (09:19)
[2019-01-19] MEDS: LORATADINE 10 MG TAB PO SCH (09:19)
[2019-01-19] MEDS: HEPARIN 5,000 UNIT/1 ML VIAL SC SCH ×2 (09:23→21:03)
[2019-01-19] MEDS: HYDROCODONE/APAP (5/325) TAB PO PRN ×2 (09:26→17:33)
[2019-01-19 11:20] VITALS: BP 108/55; PULSE 73; RESP 18
[2019-01-19] MEDS: SOD FERRIC GLUC COMPLX 125 MG in SOD CHLORIDE 0.9% 100 ML IVPB SCH (12:31)
[2019-01-19 15:26] VITALS: BP 102/55; PULSE 74; RESP 18
[2019-01-19 20:00] VITALS: BP 145/64; PULSE 76; RESP 18
--- NOTE | 2019-01-19 20:55 | RADRPT ---
Vent Rate: 76 bpm RR Interval: 784 msec SC Interval: 174 msec QRS Duration: 85 msec QT Interval: 366 msec QTC Interval: 413 msec P-R-T [place]: 69 - 25 - 45 degrees Sinus rhythm...normal P axis, V-rate 50- 99 Low voltage, precordial leads...precordial leads <1.0mV Electronically Signed By: Damien Carmona
[2019-01-19] MEDS: SOD CHLORIDE 0.9% 1,000 ML IV SCH (21:13)
[2019-01-19] MEDS: ZOLPIDEM 5 MG TAB PO PRN (23:04)
[2019-01-20] VITALS (7 sets, daily range): BP systolic 143–170; BP diastolic 69–83; PULSE 79–105; RESP 18–20
[2019-01-20] MEDS: HYDROCODONE/APAP (5/325) TAB PO PRN ×4 (01:23→18:32)
--- NOTE | 2019-01-20 03:41 | PN ---
DATE: 01/19/2019 SUBJECTIVE: Patient seen, overall feeling better. Kidney function continues to improve slowly. Not ed hypomagnesemia. Magnesium supplements were being provided. PHYSICAL EXAMINATION: VITAL SIGNS: Temperature is 98.8, pulse 74, respirations 18, blood pressure 102/55, saturation 98% o n 2 liters. GENERAL: The patient is in no acute distress, obese, pale. CARDIOVASCULAR: S1, S2. LUNGS: Decreased bilaterally. ABDOMEN: Soft, nontender. EXTREMITIES: No clubbing, cyanosis or edema. LABORATORY DATA: White count 3.44, hemoglobin 8.6, hematocrit 27, platelet count low at 87, neutroph ils 59 Celexa 26%. Chemistry: Sodium 142, potassium 4.4, chloride 115, bicarbonate 20, BUN 31, crea tinine 2.05 and glucose of 104. Hemoglobin A1c was 5.1. Magnesium low at 1.6. Troponin today was n egative. Cholesterol is 197, LDL is 43. B12 is 403. Folic acid greater than 20. Vitamin D is pend ing. PTH 55. TSH 1.1. Urine culture did show E. coli pansensitive, sensitive to all cephalosporins . MRSA screening negative, and blood cultures are negative. Renal ultrasound shows mild increased e chogenicity of both kidneys suggestive of medical renal disease. MEDICATIONS: 1. Ferric IV daily. 2. Synthroid 50 mcg daily. 3. Ambien 5 mg at bedtime p.r.n. 4. Heparin 5000 units q.12. 5. Aspirin 81 mg daily. 6. Celexa 10 mg daily. 7. Colace 100 b.i.d. bilirubin. 8. Breo 1 puff daily. 9. Neurontin 300 mg daily. 10. Claritin 10 mg daily. 11. Rocephin 1 gram q.24 hours. 12. Protonix 40 mg daily. 13. Zofran p.r.n. 14. Tylenol p.r.n. 15. [employer] p.r.n. 16. Morphine p.r.n. 17. ____ 18. Milk of magnesia. 19. ____ normal saline at 50 mL an hour. ASSESSMENT AND PLAN: This is a 68-year-old female with history of congestive heart failure , hypertension, chronic obstructive pulmonary disease, hypothyroidism, diabetes mellitus who presente d with encephalopathy, was found to have acute renal failure, urinary tract infection, severe anemia. 1. Respiratory. Noted chest x-ray. Clinically stable. Continue O2 support as needed. Continue Br eo. 2. Cardiovascular. All nephrotoxic medications were placed on hold. Vitals are stable. 3. Hypothyroidism. Continue Synthroid. TSH is at range. 4. Depression. Continue Celexa. 5. Urinary. Patient with E. coli sensitive to cephalosporins. Continue Rocephin. 6. Acute renal failure, improving with hydration. This patient was prerenal. 7. Anemia, multifactorial. Patient with an iron deficiency anemia, anemia of chronic disease. Stoo l occult blood is pending. Will transfuse p.r.n. 8. Encephalopathy, multifactorial, clinically improved with above treatment with fluids and antibiot ics. 9. Generalized body ache pain. Will request physical therapy to see the patient. Overall, clinical ly better. We will continue to follow. 10. Replace all electrolytes including magnesium. Dictated By: CHASITY PHILIP/JONAS Conf#: [id number] DID#: [id number]
[2019-01-20] MEDS: ACETAMINOPHEN 325 MG TAB PO PRN (03:55)
[2019-01-20] MEDS: PANTOPRAZOLE (EC) 40 MG TAB PO SCH (05:20)
[2019-01-20] MEDS ORDERED: NEUTRA-PHOS 250 MG PACKET PO ONE (08:00)
--- NOTE | 2019-01-20 08:24 | PN ---
DATE: 01/20/2019 SUBJECTIVE: The patient is stable, no events overnight. No fevers, chills, nausea or vomiting. OBJECTIVE: VITAL SIGNS: Blood pressure is 158/70, pulse 79, respiration 18, temperature 99.3. HEENT: Head is normocephalic. NECK: Supple. HEART: Regular rate. LUNGS: Show diminished breath sounds at the base. ABDOMEN: Soft, nontender to palpation without rebound or guarding. EXTREMITIES: Negative for clubbing, cyanosis, no edema. DERMATOLOGIC: No rashes. MUSCULOSKELETAL: No joint effusion. NEUROLOGIC: No change in exam. MEDICATIONS: Have been reviewed. LABORATORY DATA: Has been reviewed. IMAGING STUDIES: Have been reviewed. ASSESSMENT AND PLAN: 1. Nonoliguric acute kidney injury on top of chronic kidney disease with unknown baseline creatinine . Etiology of acute kidney injury is secondary to hemodynamics, diuretics, TIESHA inhibitor effect. Th e patient's renal function has improved with IV fluids. The patient currently appears euvolemic on e xam. Will discontinue IV hydration. 2. Anemia with iron deficiency. Continue IV Ferrlecit. 3. Hyperkalemia, resolved. 4. Metabolic acidosis secondary to acute kidney injury. IV fluids, continue to monitor. 5. Mineral bone disorder. Patient is hypophosphatemic. Replete with sodium phosphate. 6. Urinary tract infection. Continue current antibiotic regimen. 7. Thrombocytopenia. Continue to monitor. 8. Encephalopathy, improving. 9. General weakness. Continue to monitor. 10. Hypomagnesemia. Continue to monitor and replete as needed. Dictated By: BRANDON SHAH DO NR/NTS Conf#: [id number] DID#: [id number] CC: CHASITY MCKEON MD;*EndCC*
[2019-01-20] MEDS: GABAPENTIN 300 MG CAP PO SCH ×3 (08:41→21:57)
[2019-01-20] MEDS: CITALOPRAM 20 MG TAB PO SCH (08:41)
[2019-01-20] MEDS: LEVOTHYROXINE 50 MCG TAB PO SCH (08:41)
[2019-01-20] MEDS: LORATADINE 10 MG TAB PO SCH (08:41)
[2019-01-20] MEDS: ASPIRIN (EC) 81 MG TAB PO SCH (08:42)
[2019-01-20] MEDS: CEFTRIAXONE 1 GM/50 ML (PMX) 50 ML IVPB SCH (08:42)
[2019-01-20] MEDS: DOCUSATE SODIUM 100 MG CAP PO SCH ×2 (08:42→21:56)
[2019-01-20] MEDS: FLUTICASONE/VILANTEROL 100-25 INH SCH (08:43)
[2019-01-20] MEDS: BALSAM PERU/CASTOR OIL 60 GM TUBE TOP SCH ×2 (08:44→21:58)
[2019-01-20] MEDS: HEPARIN 5,000 UNIT/1 ML VIAL SC SCH ×2 (08:54→22:28)
--- NOTE | 2019-01-20 10:16 | RADRPT ---
Echocardiogram Report Patient Name: ESSENCE GALLAGHERPatient ID: [id number] : 1950 (68y 10m)Study Date: 01/18/2019 2:50:51 PM Gender: FAccession #: [id number] Tech: Dave Lainez [facility] Location: [address] Ref.Physician: CHASITY MCKEON Height(Cm): BSA: Weight(Kg): Quality: AdequateOrder Physician: CHASITY MCKEON Account #: Procedures: Echocardiographic Report: Transthoracic echocardiogram with complete 2D, M-Mode, and doppler examination. Indications: Congestive Heart Failure, Murmur. Measurements: 2D/M Mode Doppler Measurement Value Normal Range Measurement Value Normal Range LVIDd 2D 3.6 [ 3.8 - 5.2 ] cm LEAH VTI 1.4 [ 2.0 - 4.0 ] cm2 LVIDs 2D 2.5 [ 2.2 - 3.5 ] cm AV Mean [place] 2.0 [ 70.0 - 90.0 ] cm/sec LVPWd 2D 0.9 [ 0.6 - 0.9 ] cm AV Mean PG 19.0 [ 2.0 - 4.0 ] mmHg IVSd 2D 1.4 [ 0.6 - 0.9 ] cm AV VTI 63.1 cm AoR Diam 2D 2.4 [ 2.3 - 3.1 ] cm LVOT Mean [place] 0.8 [ 60.0 - 80.0 ] cm/sec EDV 2D 55.2 [ 46.0 - 106.0 ] ml LVOT Mean PG 3.0 [ 1.0 - 3.0 ] mmHg ESV 2D 21.7 [ 14.0 - 42.0 ] ml LVOT Peak [place] 1.2 [ 70.0 - 110.0 ] cm/sec EF 2D 60.7 [ 54.0 - 74.0 ] percent LVOT Peak PG 5.0 [ 2.0 - 6.0 ] mmHg LA Dimen 2D 3.8 [ 2.7 - 3.8 ] cm LVOT VTI 27.3 [ 20.0 - 30.0 ] cm LVOT Diam 2.0 [ 2.1 - 2.5 ] cm MV E Peak [place] 0.8 [ 60.0 - 130.0 ] cm/sec MV A Peak [place] 1.1 [ 100.0 - 120.0 ] cm/sec MV E/A 0.7 [ 0.8 - 1.5 ] ratio MV Peak [place] 1.3 [ 60.0 - 130.0 ] cm/sec MV Peak PG 7.0 [ 1.0 - 10.0 ] mmHg MV Mean [place] 0.7 cm/sec MV Mean PG 2.0 mmHg MV Decel Time 317 [ 104 - 258 ] msec Lat E` [place] 0.2 [ 10.0 - 15.0 ] cm/sec Lateral E/E` 4.5 [ 1.0 - 2.0 ] ratio Med E` [place] 0.1 cm/sec MV E/A 0.7 [ 0.8 - 1.5 ] ratio MV VTI 49.6 cm MVA VTI 1.7 cm RA Pressure 10.0 mmHg Findings: Left Ventricle: Normal left ventricular systolic function. Normal left ventricular cavity size. Sigmoid septum. Ejection fraction is visually estimated at 65 %. Tissue Doppler/Mitral Doppler indices are consistent with impaired relaxation (Stage I diastolic dysfunction). Right Ventricle: Normal right ventricular size. Normal right ventricular systolic function. Left Atrium: The left atrium is normal in size. Right Atrium: The right atrium is normal in size. Mitral Valve: Mitral valve leaflets appear mildly thickened. Mild mitral annular calcification. Trace mitral regurgitation. Aortic Valve: Aortic valve not well visualized. Moderate aortic stenosis. Aortic valve Max velocity 2.98 m/sec. Max PG 35.60 mmHg. Mean PG 19.00 mmHg. Aortic valve area 1.36 cm2. Aortic cusps appear moderately calcified. Tricuspid Valve: Normal appearance of the tricuspid valve. Unable to obtain RVSP due to minimal presence of tricuspid regurgitation. Pericardium: Normal pericardium with no significant pericardial effusion. Aorta: Normal aortic root. IVC: Normal size and normal respiratory collapse consistent with normal right atrial pressure. Conclusions: Normal left ventricular systolic function. Normal left ventricular cavity size. Sigmoid septum. Ejection fraction is visually estimated at 65 %. Tissue Doppler/Mitral Doppler indices are consistent with impaired relaxation (Stage I diastolic dysfunction). Mitral valve leaflets appear mildly thickened. Mild mitral annular calcification. Trace mitral regurgitation. Aortic valve not well visualized. Moderate aortic stenosis. Aortic valve Max velocity 2.98 m/sec. Max PG 35.60 mmHg. Mean PG 19.00 mmHg. Aortic valve area 1.36 cm2. Aortic cusps appear moderately calcified. Normal appearance of the tricuspid valve. Unable to obtain RVSP due to minimal presence of tricuspid regurgitation. Normal size and normal respiratory collapse consistent with normal right atrial pressure. Electronically Signed By: Hector Schuler 2019-01-20 10:16:35 PDT
[2019-01-20] MEDS ORDERED: AMLODIPINE 5 MG TAB PO SCH (11:30)
[2019-01-20] MEDS: morphine 2 MG INJ IV PRN ×2 (11:38→21:27)
[2019-01-20] MEDS: METOPROLOL 25 MG TAB PO SCH ×2 (11:38→21:57)
[2019-01-20] MEDS: SOD FERRIC GLUC COMPLX 125 MG in SOD CHLORIDE 0.9% 100 ML IVPB SCH (13:33)
--- NOTE | 2019-01-20 15:08 | CONS ---
DATE OF ADMISSION: 01/17/2019 DATE OF CONSULTATION: 01/20/2019 TYPE OF CONSULTATION: Gastrointestinal. REASON FOR CONSULTATION: Heme-positive stool guaiac. HISTORY OF PRESENT ILLNESS: A 68-year-old female with a history of hypertension, chronic pain syndro me, COPD, depression, diabetes mellitus, hypothyroidism, has been living at a [facility] . Patient complained of chest pain and generalized weakness, so was brought to the Emergency Room, w as found to have a BUN of 60, creatinine of 4.56. She also had a UTI, so was admitted for further ma nagement. Patient is confined to the wheelchair. On interrogation she complains of anorexia and has been losing weight because of the poor appetite. PAST MEDICAL HISTORY: As described. ALLERGIES: 1. TETRACYCLINE. 2. PENICILLIN. 3. AMOXICILLIN. 4. ERYTHROMYCIN. FAMILY HISTORY: Nothing contributory. SOCIAL HISTORY: Used to be a social smoker. Positive for alcohol in the past. No IV drug abuse. PAST SURGICAL HISTORY: Appendicectomy, total abdominal hysterectomy. MEDICATIONS: All reviewed. PHYSICAL EXAMINATION: GENERAL: Alert, awake, not in distress. VITAL SIGNS: Stable. HEENT: Unremarkable. NECK: Supple, no thyromegaly, no lymphadenopathy. CARDIOVASCULAR: No murmur, gallop or click. LUNGS: Clear. ABDOMEN: Benign. EXTREMITIES: No edema. CENTRAL NERVOUS SYSTEM: Grossly within normal limits. LABORATORY DATA: Creatinine has come down to 2.05. BUN IS 31. LFTs all within normal limits. Foli c acid was normal. Stool for occult blood was reported positive. Hematocrit has been 23. Normochro néstor, normocytic pattern. Platelet count is also low, 88. Brain CT negative. Chest x-ray also abbey l. IMPRESSION: 1. Anemia, multifactorial. Anemia of chronic disease plus occult gastrointestinal bleeding. 2. Renal failure is gradually improving. 3. Hypothyroidism. 4. Depression. 5. Urinary tract infection. 6. Generalized body ache. PLAN: At this point, is to continue present care. Once she is more stable, will proceed with EGD an d colonoscopy. Discussed with the patient and has agreed. Dictated By: BECKIE JONES/NTS Conf#: [id number] DID#: [id number] CC: CHASITY MCKEON MD;*EndCC*
[2019-01-20] MEDS ORDERED: POTASSIUM PHOSPHATE 20 MEQ in SOD CHLORIDE 0.9% 250 ML IVPB ONE (16:00)
--- NOTE | 2019-01-20 16:30 | PN ---
DATE: 01/20/2019 SUBJECTIVE: Noted the patient with iron deficiency anemia. Also, stool occult blood came back posit elroy, so I did request GI consultation as discussed. The patient will undergo EGD and colonoscopy on Wednesday. The patient's kidney function continues to improve. H and H [facility]. The patient does have a Vargas. Case was discussed. Also, we are resuming her blood pressure medications. PHYSICAL EXAMINATION: VITAL SIGNS: Temperature 98.4, pulse 89, respirations 18, blood pressure 169/82, saturation 96% on 2 liters. GENERAL: The patient is in no acute distress, pale, morbidly obese. CARDIOVASCULAR: Positive S1, S2. LUNGS: Clear. ABDOMEN: Soft. EXTREMITIES: No clubbing, cyanosis or edema. LABORATORY DATA: White count 4.1, hemoglobin 8, hematocrit 24, platelet count is low at 88, neutroph ils 62%, lymphs 24%. Chemistry: Sodium 140, potassium 3.9, chloride 112, bicarbonate 21, BUN is 19, creatinine of 1.52 and glucose of 120. Phosphorus is low at 1.9. CEA is 6.4. Stool occult blood i s positive. The patient's urine culture showed E. coli sensitive to Rocephin. MRSA screening is neg ative. MEDICATIONS: 1. Lopressor 25 b.i.d. 2. Norvasc 5 mg daily. 3. Ferric IV daily. 4. Synthroid 50 mcg daily. 5. Ambien p.r.n. 6. Heparin 5000 q.12. 7. Aspirin 81 mg daily. 8. Celexa 10 mg daily. 9. Colace 100 b.i.d. 10. Breo 1 puff daily. 11. Neurontin 300 t.i.d. 12. Claritin 10 mg daily. 13. Rocephin 1 gram q.24 hours. 14. Potassium ____ daily. 15. Zofran p.r.n. 16. Tylenol p.r.n. 17. [place] p.r.n. 18. Morphine p.r.n. 19. Milk of Magnesia p.r.n. ASSESSMENT AND PLAN: This is a 68-year-old female with history of congestive heart failure , hypertension, chronic obstructive pulmonary disease, hypothyroidism, diabetes mellitus, presented w ith encephalopathy, was found to have acute renal failure, urinary tract infection and severe anemia. 1. Respiratory: Stable. Hep-Lock IV fluids. Continue Breo and O2 support. 2. Cardiovascular: Titrate blood pressure medication up. 3. Hypothyroidism. Continue Synthroid. TSH is at range. 4. Depression. Continue Celexa. 5. Urinary tract infection on E. coli sensitive to ceftriaxone. Discontinue Vargas in the a.m. 6. Acute renal failure, improved. I appreciate nephrology input. 7. Anemia, multifactorial. We will pursue EGD and colonoscopy in the setting of elevated CEA and po sitive fecal occult blood. 8. Encephalopathy, back to baseline, likely toxic metabolic due to the above. 9. Generalized body ache. Physical therapy to follow. 10. Replacement of electrolytes including potassium and phosphorus. We will follow closely. Dictated By: CHASITY PHILIP/JONAS Conf#: [id number] DID#: [id number] CC: BRANDON SHAH DO;*EndCC*
[2019-01-20] MEDS ORDERED: AMLODIPINE 5 MG TAB ONE (16:38)
[2019-01-20] MEDS ORDERED: PEG/ELECTROLYTES 4L BTL PO ONE (17:30)
[2019-01-20] MEDS: AMLODIPINE 5 MG TAB PO SCH (21:57)
[2019-01-20] MEDS: ZOLPIDEM 5 MG TAB PO PRN (23:47)
[2019-01-21] VITALS (18 sets, daily range): BP systolic 98–165; BP diastolic 56–82; PULSE 72–97; RESP 16–29
[2019-01-21] MEDS: morphine 2 MG INJ IV PRN ×2 (01:18→22:17)
[2019-01-21] MEDS: HYDROCODONE/APAP (5/325) TAB PO PRN ×3 (03:55→17:41)
[2019-01-21] MEDS: PANTOPRAZOLE (EC) 40 MG TAB PO SCH (06:12)
[2019-01-21] MEDS: LEVOTHYROXINE 50 MCG TAB PO SCH (06:12)
[2019-01-21] MEDS ORDERED: MAGNESIUM SULFATE 2 GM/50 ML 50 ML IVPB ONE (08:00)
[2019-01-21] MEDS: ONDANSETRON 4 MG INJ IV PRN (08:05)
[2019-01-21] MEDS: CEFTRIAXONE 1 GM/50 ML (PMX) 50 ML IVPB SCH (08:06)
--- NOTE | 2019-01-21 08:45 | PREAC ---
Date/Time of Note Date/Time of Note DATE: 01/21/19 TIME: 08:40 Anesthesia Eval and Record Evaluation Time Pre-Procedure Interview DATE: 01/21/19 TIME: 08:40 Age 68 Sex female NPO: 8 hrs Preoperative diagnosis iron deficiency anemia, heme positive stool guaiac Planned procedure EGD, colonoscopy Past Medical History Past Medical History: Includes Cardio: HTN, NE, CAD, CHF Endo: Diabetes, Hypothyroid Pulm: COPD Neuro: Other (chronic pain) Renal: ADAMA, CKD Psych: Depression, Anxiety Surgery & Anesthesia Issues No known issue Meds Anticoagulation: No Beta Marianela within 24 hr: Yes Reason Beta Marianela not given: Bradycarida, Hypotension Reported Medications Hydrocodone/Acetaminophen (Hydrocodone-Acetamin 10-325 mg) 1 Each Tablet, 1 TAB PO DAILY 01/18/19 Multivit with Iron-Minerals (Unicomplex-M) 1 Each Tablet, 1 EACH PO DAILY, TAB 09/12/18 Cran/Vitc/Mannose/Inulin/Brom (Uti-Stat Liquid) 3,875 Mg/30 Ml Liquid, 3875 MG PO BID 09/12/18 Ascorbic Acid* (Vitamin C*) 500 Mg Capsule.sa, 500 MG PO DAILY, CAP 09/12/18 Zolpidem Tartrate* (Zolpidem Tartrate*) 5 Mg Tablet, 5 MG PO QHS PRN for INSOMNIA, #30 TAB 09/12/18 Trazodone Hcl* (Trazodone Hcl*) 100 Mg Tablet, 100 MG PO QHS, #30 TAB 09/12/18 Simvastatin* (Zocor*) 40 Mg Tablet, 40 MG PO QHS, #30 TAB 09/12/18 Quetiapine Fumarate* (Quetiapine Fumarate*) 50 Mg Tablet, 50 MG PO HS, TAB 09/12/18 Calcium Carbonate/Vitamin D3 ([place] 500+D Tablet) 1 Each Tablet, 1 EACH PO DAILY, TAB 09/12/18 Magnesium Hydroxide* (Milk Of Magnesia*) 400 Mg/5 Ml Oral.susp, 30 ML PO DAILY, ML 09/12/18 Metoprolol Tartrate* (Lopressor*) 25 Mg Tab, 25 MG PO BID, #60 TAB 09/12/18 Metformin Hcl* (Metformin Hcl*) 1,000 Mg Tablet, 1000 MG PO WITH BREAKFAST DINNE, #60 TAB 09/12/18 Loratadine* (Loratadine*) 10 Mg Tablet, 10 MG PO DAILY, #30 TAB 09/12/18 Lisinopril* (Lisinopril*) 5 Mg Tablet, 5 MG PO DAILY, #30 TAB 09/12/18 Levothyroxine Sodium* (Levoxyl*) 200 Mcg Tablet, 200 MCG PO BEFORE BREAKFAST, #30 TAB 09/12/18 Bisacodyl* (Bisacodyl*) 5 Mg Tablet.dr, 5 MG PO DAILY, TAB 09/12/18 Fluticasone-Vilanterol (Breo Ellipta Inhaler) 100-25 Mcg/Actuation Aer.pow.ba, 1 PUFF INHALATION DAILY, #1 INHALER 09/12/18 Citalopram Hydrobromide* (Celexa*) 20 Mg Tablet, 20 MG PO DAILY, #30 TAB 09/12/18 Clonidine (CLONIDINE) 1 Each Patch.tdwk, 1 PATCH.WK TD Q7D, #4 PATCH.WK 0.1MG 09/12/18 Clonidine Hcl* (Clonidine Hcl*) 0.1 Mg Tab, 0.1 MG PO Q8 PRN for ELEVATED BLOOD PRESSURE, TAB FOR SBP >160 09/12/18 Docusate Sodium* (Dok*) 100 Mg Tablet, 100 MG PO BID, #60 CAP 09/12/18 Na Phos,M-B/Na Phos,Di-Ba (ENEMA LYOUZ-DP-JTY) 133 Ml Enema, 133 ML RC EVERY 3 DAYS PRN for CONSTIPATION, ENEMA 09/12/18 Esomeprazole Mag Trihydrate (Nexium) 40 Mg Capsule.dr, 40 MG PO DAILY, #30 CAP 09/12/18 Furosemide* (Furosemide*) 20 Mg Tablet, 20 MG PO DAILY, #60 TAB HOLD FOR SBP<110 09/12/18 Gabapentin* (Gabapentin*) 300 Mg Capsule, 300 MG PO TID, #90 CAP 09/12/18 Bisacodyl (Dulcolax) 10 Mg Supp.rect, 10 MG RC PRN PRN for CONSTIPATION, SUPP.RECT 09/12/18 Baclofen* (Baclofen*) 10 Mg Tablet, 10 MG PO TID, TAB 09/12/18 Aspirin (Low Dose Aspirin) 81 Mg Tablet.dr, 81 MG PO DAILY, #30 TAB 09/12/18 Amlodipine Besylate* (Norvasc*) 5 Mg Tablet, 5 MG PO DAILY, TAB HOLD FOR SBP <110 09/12/18 Current Medications IV Flush (NS 3 ml) 3 ml PER PROTOCOL IV ; Start 01/17/19 at 23:00 Ondansetron HCl (Zofran Inj) 4 mg Q6H PRN IV NAUSEA/VOMITING Last administered on 01/21/19 08:05; Admin Dose 4 MG; Start 01/17/19 at 23:00 Acetaminophen (Tylenol Tab) 650 mg Q6H PRN PO .PAIN 1-3 OR TEMP Last administered on 01/20/19 03:55; Admin Dose 650 MG; Start 01/17/19 at 23:00 Acetaminophen/ Hydrocodone Bitart ([place] (5/325)) 1 tab Q6H PRN PO .PAIN 4-6 Last administered on 01/21/19 03:55; Admin Dose 1 TAB; Start 01/17/19 at 23:00 Morphine Sulfate (morphine) 2 mg Q4H PRN IV .PAIN 7-10 Last administered on 01/21/19 01:18; Admin Dose 2 MG; Start 01/17/19 at 23:00 Docusate Sodium (Colace) 100 mg Q12H PRN PO .CONSTIPATION; Start 01/17/19 at 23:00 Magnesium Hydroxide (Milk Of Mag) 30 ml DAILY PRN PO .CONSTIPATION; Start 01/17/19 at 23:00 Pantoprazole (Protonix Tab) 40 mg DAILY@06 PO Last administered on 01/21/19 06:12; Admin Dose 40 MG; Start 01/18/19 at 06:00 Heparin Sodium (Porcine) (Heparin (5000 Units/1ml)) 5,000 unit Q12 SC Last administered on 01/20/19 22:28; Admin Dose 5,000 UNIT; Start 01/18/19 at 09:00 Aspirin (Halfprin) 81 mg DAILY PO Last administered on 01/20/19 08:42; Admin Dose 81 MG; Start 01/18/19 at 09:00 Citalopram Hydrobromide (Celexa) 20 mg DAILY PO Last administered on 01/20/19 08:41; Admin Dose 20 MG; Start 01/18/19 at 09:00 Docusate Sodium (Colace) 100 mg BID PO Last administered on 01/20/19 21:56; Admin Dose 100 MG; Start 01/18/19 at 09:00 Fluticasone/ Vilanterol (Breo Ellipta 100-25 Mcg Inh) 1 inh DAILY INH Last administered on 01/20/19 08:43; Admin Dose 1 INH; Start 01/18/19 at 09:00 Gabapentin (Neurontin) 300 mg TID PO Last administered on 01/20/19 21:57; Admin Dose 300 MG; Start 01/18/19 at 09:00 Loratadine (Claritin) 10 mg DAILY PO Last administered on 01/20/19 08:41; Admin Dose 10 MG; Start 01/18/19 at 09:00 Ceftriaxone Sodium 50 ml @ 100 mls/hr Q24H IVPB Last administered on 01/21/19 08:06; Admin Dose 100 MLS/HR; Start 01/18/19 at 09:00 Levothyroxine Sodium (Synthroid) 50 mcg BEFORE BREAKFAST PO Last administered on 01/21/19 06:12; Admin Dose 50 MCG; Start 01/19/19 at 07:00 Ferric Sodium Gluconate Complex 125 mg/Sodium Chloride 110 ml @ 110 mls/hr DAILY@1300 IVPB Last administered on 01/20/19 13:33; Admin Dose 110 MLS/HR; Start 01/19/19 at 13:00; Stop 01/23/19 at 13:59 Zolpidem Tartrate (Ambien) 5 mg HS PRN PO INSOMNIA Last administered on 23:47; Admin Dose 5 MG; Start 01/18/19 at 23:30 Metoprolol Tartrate (Lopressor) 25 mg BID PO Last administered on 01/20/19 21:57; Admin Dose 25 MG; Start 01/20/19 at 11:30 Amlodipine Besylate (Norvasc) 5 mg BID PO Last administered on 01/20/19 21:57; Admin Dose 5 MG; Start 01/20/19 at 21:00 Hydralazine HCl (Apresoline) 25 mg TID PO Last administered on 01/20/19 21:56; Admin Dose 25 MG; Start 01/20/19 at 21:00 Magnesium Sulfate 50 ml @ 25 mls/hr ONCE ONCE IVPB ; Start 01/21/19 at 08:00; Stop 01/21/19 at 09:59 Meds reviewed: Yes Allergies Coded Allergies: Penicillins (Unverified Allergy, Unknown, 01/18/19) amoxicillin (Unverified Allergy, Unknown, 01/18/19) pepper (genus Capsicum) (Verified Allergy, Unknown, 01/19/19) swells up Uncoded Allergies: ERYTHROMYCIN (Allergy, Unknown, 09/12/18) Allergies Reviewed: Yes Labs/Studies Labs Reviewed: Reviewed by anesthesiologist Result Diagram: 01/21/19 0435 01/21/19 0435 Laboratory Tests 01/21/19 04:35 test: N/A Studies: CXR, 2D Echo Pre-procedure Exam Last vitals Vital Signs Date Temp Pulse Resp B/P (MAP) Pulse Ox O2 O2 Flow FiO2 Time Delivery Rate 01/21/19 98.3 97 18 165/82 99 Room Air 07:41 (109) 01/21/19 2.0 01:11 01/20/19 27 11:05 Airway: Adequate mouth opening, Adequate thyromental dist Mallampati: Mallampati II Teeth: Abnormal (upper and lower dentures) Lung: Normal Heart: Normal ASA Physical Status ASA physical status: 3 Emergency: None Planned Anesthetic General/MAC: Mask Planned Pain Management Parenteral pain med Pre-operative Attestations Prior to commencing anesthesia and surgery, the patient was re-evaluated, there was verification of: *The patient's identity *The results of appropriate recent lab work and preoperative vital signs *The above evaluation not changing prior to induction *Anesthetic plan, risk benefits, alternative and complications discussed with patient/family; questions answered; patient/family understands, accepts and wishes to proceed. WILLIAM AARON MD Jan 21, 2019 08:45
[2019-01-21] MEDS: DOCUSATE SODIUM 100 MG CAP PO SCH ×3 (09:00→21:00)
[2019-01-21] MEDS: HEPARIN 5,000 UNIT/1 ML VIAL SC SCH ×2 (09:00→20:22)
[2019-01-21] MEDS: BALSAM PERU/CASTOR OIL 60 GM TUBE TOP SCH ×2 (09:00→20:23)
[2019-01-21] MEDS: GABAPENTIN 300 MG CAP PO SCH ×3 (09:34→20:19)
[2019-01-21] MEDS: AMLODIPINE 5 MG TAB PO SCH ×2 (09:35→20:20)
[2019-01-21] MEDS: ASPIRIN (EC) 81 MG TAB PO SCH (09:35)
[2019-01-21] MEDS: LORATADINE 10 MG TAB PO SCH (09:35)
[2019-01-21] MEDS: METOPROLOL 25 MG TAB PO SCH ×2 (09:36→20:20)
[2019-01-21] MEDS: CITALOPRAM 20 MG TAB PO SCH (09:36)
[2019-01-21] MEDS: FLUTICASONE/VILANTEROL 100-25 INH SCH (10:25)
[2019-01-21] MEDS ORDERED: LIDOCAINE 2% (SDV) 5 ML INJ ONE (12:35)
[2019-01-21] MEDS ORDERED: EPHEDrine 25 MG/5 ML SYG ONE (12:35)
[2019-01-21] MEDS ORDERED: PROPOFOL 40 ML ONE (12:35)
[2019-01-21] MEDS ORDERED: ONDANSETRON 4 MG INJ IV PRN (13:00)
[2019-01-21] MEDS ORDERED: FENTAnyl 50 MCG/ML VIAL IV PRN (13:00)
[2019-01-21] MEDS ORDERED: HYDROmorphONE 1 MG/5 ML IV SYRINGE IV PRN ×2 (13:00)
--- NOTE | 2019-01-21 13:09 | PAC ---
Date/Time of Note Date/Time of Note DATE: 01/21/19 TIME: 13:09 Post-Anesthesia Notes Post-Anesthesia Note Last documented vital signs Vital Signs Date Temp Pulse Resp B/P (MAP) Pulse Ox O2 O2 Flow FiO2 Time Delivery Rate 01/21/19 98.3 97 18 165/82 99 Room Air 07:41 (109) 01/21/19 2.0 01:11 01/20/19 27 11:05 Activity: WNL Respiratory function: WNL Cardiovascular function: WNL Mental status: Baseline Pain reasonably controlled: Yes Hydration appropriate: Yes Nausea/Vomiting absent: Yes Comments BP: 99/58 HR: 89 RR: 15 T: 98 SaO2: 98% WILLIAM AARON MD Jan 21, 2019 13:09
--- NOTE | 2019-01-21 14:37 | PN ---
DATE: 01/21/2019 SUBJECTIVE: The patient seen, status post EGD, colonoscopy, which was just performed. We will follo w up results. The patient overall tolerated the procedure well. The patient is complaining of not s leeping for the last few days as she is tired. PHYSICAL EXAMINATION: VITAL SIGNS: Temperature is 98.2, pulse is 88, respirations 26, blood pressure 142/72, saturation 98 %. GENERAL: The patient is pale. CARDIOVASCULAR: S1 and S2, positive systolic ejection murmur heard throughout. LUNGS: Clear. ABDOMEN: Soft. EXTREMITIES: No clubbing or cyanosis. Trace edema upper and lower extremities. Vargas to gravity. LABORATORY DATA: White count 7.4, hemoglobin 10, hematocrit 30, platelet count 132, neutrophils 62%, 24%. Chemistry: Sodium 140, potassium 4.4, chloride 112, bicarbonate 21, BUN is 11, creatini ne 1.27 and glucose of 124. Magnesium is low at 1.5. CEA was 6.4, elevated. Stool occult blood was positive. Again, EGD, colonoscopy results are pending. MEDICATIONS: 1. Dilaudid p.r.n. 2. Norvasc 5 mg b.i.d. 3. Hydralazine 25 t.i.d. 4. Lopressor 25 b.i.d.. 5. Ferric iron IV daily. 6. Synthroid 50 mcg daily. 7. Ambien p.r.n. 8. Heparin 5000 q.12. 9. Aspirin 81 mg daily. 10. Celexa 20 mg daily. 11. Colace 100 b.i.d. 12. Breo 1 puff daily. 13. Neurontin 300 t.i.d. 14. Claritin 10 mg daily. 15. Rocephin 1 gram q.24 hours. 16. Protonix 40 mg daily. 17. Zofran p.r.n. 18. Tylenol p.r.n. 19. [place] p.r.n. ASSESSMENT AND PLAN: This is a 68-year-old female with history of congestive heart failure , hypertension, COPD, hypothyroidism, diabetes mellitus, who presented with encephalopathy due to acu te renal failure, UTI and anemia. 1. Respiratory. Stable. Monitor for fluid overload state. Continue Breo. O2 support as needed. 2. Cardiovascular. Blood pressure is better controlled with above regimen. 3. Hypothyroidism. Continue Synthroid. TSH is at range. 4. Depression. Continue Celexa. 5. Urinary tract infection. Continue Rocephin while in house. 6. Acute renal failure, improved. 7. Anemia, multifactorial with elevated CEA and positive stool occult blood. Follow up EGD and colo noscopy report. PPI to be provided. 8. Generalized body aches. Physical therapy as tolerated. 9. Discontinue Vargas catheter soon. DISPOSITION: Home soon. We will discuss with staff. Definitely, the patient kidney function improv ed. We will follow. Dictated By: CHASITY PHILIP/JONAS Conf#: [id number] DID#: [id number] CC: BRANDON SHAH DO;*EndCC*
--- NOTE | 2019-01-21 14:40 | GILP ---
DATE OF PROCEDURE: 01/21/2019 PROCEDURE: EGD WITH BIOPSY, COLONOSCOPY WITH BIOPSY INDICATION: A 68-year-old female undergoing this procedure for anemia and positive stool guaiac. Th e risk of the procedure, related and unrelated complications, anesthetic risks, alternatives gracia dKris Informed consent was obtained. DESCRIPTION OF PROCEDURE: The patient was brought to the GI lab, sedated by Dr. Dillard. After optimal sedation, scope was passed with much ease into esophagus. Z line was at 30 cm. Advanced further do wn into stomach, gastritis identified. Biopsies taken to rule out H. pylori infection. Duodenum, fi rst and second part including ampulla appeared normal. Retroversion done in the stomach which was no rmal. Scope was straightened out and removed with good patient tolerance. IMPRESSION: 1. Normal Z-line at 30 cm. 2. Gastritis. 3. Normal duodenum and ampulla. PLAN: Review histopathology. COLONOSCOPY REPORT: The patient was turned around. The preparation was very poor. Scope was passed with much ease into rectum. There was a solid sticky stool identified, used a jet of water to find the lumen. Managed to pass all the way into the right side of the colon. Pre-cecal area, there was a double quarter size ulcerated area identified, appeared to be ischemic ulcer or stercoral ulcer. T wo biopsies obtained from the margin. Cecum was filled with stool. Ascending colon was filled with stool. Scope was removed with good patient tolerance. IMPRESSION: 1. Diverticulosis, left side of the colon. 2. A 5-6 cm ulcer in diameter identified in the pre-cecal area or ascending colon. Two biopsies obt ained to confirm the diagnosis. This could be ischemic ulcer or stercoral ulcer. 3. Poor prep. PLAN: Review histopathology, keep the blood pressure below 100, a stool softener in the form of [place] 24 mcg b.i.d. Dictated By: BECKIE JONES/NTS Conf#: [id number] DID#: [id number] CC: CHASITY MCKEON MD;*EndCC*
[2019-01-21] MEDS: SOD FERRIC GLUC COMPLX 125 MG in SOD CHLORIDE 0.9% 100 ML IVPB SCH (14:51)
[2019-01-21] MEDS: ZOLPIDEM 5 MG TAB PO PRN (20:19)
[2019-01-22] VITALS (7 sets, daily range): BP systolic 102–160; BP diastolic 57–77; PULSE 72–105; RESP 12–20
[2019-01-22] MEDS: HYDROCODONE/APAP (5/325) TAB PO PRN ×3 (01:35→20:18)
[2019-01-22] MEDS: PANTOPRAZOLE (EC) 40 MG TAB PO SCH (06:06)
[2019-01-22] MEDS: LEVOTHYROXINE 50 MCG TAB PO SCH (06:06)
[2019-01-22] MEDS: morphine 2 MG INJ IV PRN ×2 (06:12→15:57)
[2019-01-22] MEDS ORDERED: MAGNESIUM SULFATE 2 GM/50 ML 50 ML IVPB ONE (08:00)
--- NOTE | 2019-01-22 08:12 | PN ---
DATE: 01/22/2019 SUBJECTIVE: The patient is stable, no events overnight. No fever, chills, nausea or vomiting. OBJECTIVE: VITAL SIGNS: Blood pressure is 151/73, respirations 20, pulse 98, temperature 98.5. HEENT: Head is normocephalic. NECK: Supple. HEART: Regular rate. LUNGS: Show diminished breath sounds at the base. ABDOMEN: Soft, nontender to palpation without rebound or guarding. EXTREMITIES: Negative for clubbing, cyanosis, no edema. DERMATOLOGIC: No rashes. MUSCULOSKELETAL: No joint effusion. NEUROLOGIC: No change in exam. MEDICATIONS: The patient's medications have been reviewed. LABORATORY DATA: Has been reviewed. IMAGING STUDIES: Have been reviewed. ASSESSMENT AND PLAN: 1. Nonoliguric acute kidney injury on top of chronic kidney disease with unknown baseline creatinine . Etiology of ADAMA is secondary to hemodynamics. Renal function has improved. Creatinine appears to be stabilizing around 1.2 mg/dL. At this point, continue current treatment plan, supportive care and renally dose all meds. 2. Anemia. The patient is status post colonoscopy, EGD with evidence of gastritis. Continue to mon itor. Continue PPI. Follow up with GI. 3. Hyperkalemia, resolved. 4. Metabolic acidosis secondary to acute kidney injury, improved. 5. Mineral bone disorder. Monitor calcium and phosphorus levels. 6. Urinary tract infection. The patient has completed an antibiotic course. 7. Thrombocytopenia. Continue to monitor. 8. Encephalopathy, improving. 9. Generalized weakness. Continue physical therapy. 10. Hypomagnesemia. Continue to monitor and replete as needed. Dictated By: BRANDON SHAH DO NR/JONAS Conf#: [id number] DID#: [id number] CC: CHASITY MCKEON MD;*EndCC*
[2019-01-22] MEDS: LORATADINE 10 MG TAB PO SCH (08:18)
[2019-01-22] MEDS: DOCUSATE SODIUM 100 MG CAP PO SCH ×2 (08:18→20:17)
[2019-01-22] MEDS: GABAPENTIN 300 MG CAP PO SCH ×3 (08:19→20:17)
[2019-01-22] MEDS: CITALOPRAM 20 MG TAB PO SCH (08:19)
[2019-01-22] MEDS: METOPROLOL 25 MG TAB PO SCH (08:20)
[2019-01-22] MEDS: AMLODIPINE 5 MG TAB PO SCH ×2 (08:21→20:19)
[2019-01-22] MEDS: BALSAM PERU/CASTOR OIL 60 GM TUBE TOP SCH ×2 (08:22→20:20)
[2019-01-22] MEDS: FLUTICASONE/VILANTEROL 100-25 INH SCH (08:22)
[2019-01-22] MEDS: CEFTRIAXONE 1 GM/50 ML (PMX) 50 ML IVPB SCH (08:29)
[2019-01-22] MEDS: ASPIRIN (EC) 81 MG TAB PO SCH (09:00)
[2019-01-22] MEDS: HEPARIN 5,000 UNIT/1 ML VIAL SC SCH (09:00)
--- NOTE | 2019-01-22 12:09 | CONS ---
Assessment/Plan Assessment/Plan Assessment/Plan (Daily) IMPRESSION: 1. Anemia, multifactorial. Anemia of chronic disease plus occult gastrointestinal bleeding. 2. Renal failure is gradually improving. 3. Hypothyroidism. 4. Depression. 5. Urinary tract infection. 6. Generalized body ache 7. Constipation 8. Large ulcer in the prececal area biopsy report pending Plan No aspirin or NSAID Monitor H&H Monitor CEA as an outpatient Patient may need repeat colonoscopy as an outpatient since the colon was not clean We will review the pathology report Physical therapy Consultation Date/Type/Reason Admit Date/Time Jan 17, 2019 at 23:00 Initial Consult Date Date/Time of Note DATE: 01/22/19 TIME: 12:07 24 HR Interval Summary Constitutional: no complaints, improved Exam/Review of Systems Exam Vitals Vital Signs Date Temp Pulse Resp B/P (MAP) Pulse Ox O2 O2 Flow FiO2 Time Delivery Rate 01/22/19 99.3 105 16 137/77 96 Room Air 07:54 (97) 01/21/19 2.0 13:25 01/20/19 27 11:05 Intake and Output 01/21/19 01/21/19 01/22/19 1515:00 23:00 07:00 IntakeIntake Total 100 ml 1150 ml 480 ml OutputOutput Total 600 ml 900 ml BalanceBalance -500 ml 250 ml 480 ml Constitutional: alert, oriented, well developed Psych: no complaints, nl mood/affect Head: normocephalic, atraumatic Eyes: nl conjunctiva, EOMI, nl lids, nl sclera, PERRL ENMT: nl external ears & nose, nl lips & teeth, nl nasal mucosa & septum Neck: supple, non-tender Respiratory: clear to auscultation, normal air movement Cardiovascular: regular rate and rhythm, nl pulses Gastrointestinal: soft, nl liver, spleen, non-tender Musculoskeletal: nl extremities to inspection, nl gait and stance Extremities: normal pulses Neurological: SPINDLE SETTER II-XII intact, nl mental status, nl speech, nl strength Skin: nl turgor; No rash or lesions Lymph: nl lymph nodes Results Result Diagram: 01/22/19 0439 01/22/19 0439 Results 24hrs Laboratory Tests Test 01/22/19 04:39 White Blood Count 6.2 Red Blood Count 2.60 L Hemoglobin 8.4 L Hematocrit 24.1 L Mean Corpuscular Volume 92.7 Mean Corpuscular Hemoglobin 32.3 Mean Corpuscular Hemoglobin Concent 34.9 Red Cell Distribution Width 13.1 Platelet Count 118 L Mean Platelet Volume 9.5 Immature Granulocytes % 1.900 H Neutrophils % 68.3 Lymphocytes % 17.3 Monocytes % 8.7 Eosinophils % 3.2 Basophils % 0.6 Nucleated Red Blood Cells % 0.0 Immature Granulocytes # 0.120 H Neutrophils # 4.2 Lymphocytes # 1.1 Monocytes # 0.5 Eosinophils # 0.2 Basophils # 0.0 Nucleated Red Blood Cells # 0.0 Sodium Level 138 Potassium Level 3.8 Chloride Level 107 Carbon Dioxide Level 22 Anion Gap 9 Blood Urea Nitrogen 13 Creatinine 1.22 H Est Glomerular Filtrat Rate mL/min 44 L Glucose Level 135 Calcium Level 9.0 Phosphorus Level 2.8 Magnesium Level 1.6 L Medications Medication Current Medications IV Flush (NS 3 ml) 3 ml PER PROTOCOL IV ; Start 01/17/19 at 23:00 Ondansetron HCl (Zofran Inj) 4 mg Q6H PRN IV NAUSEA/VOMITING Last administered on 01/21/19at 08:05; Admin Dose 4 MG; Start 01/17/19 at 23:00 Acetaminophen (Tylenol Tab) 650 mg Q6H PRN PO .PAIN 1-3 OR TEMP Last administered on 01/20/19at 03:55; Admin Dose 650 MG; Start 01/17/19 at 23:00 Acetaminophen/ Hydrocodone Bitart ([place] (5/325)) 1 tab Q6H PRN PO .PAIN 4-6 Last administered on 01/22/19at 08:19; Admin Dose 1 TAB; Start 01/17/19 at 23:00 Morphine Sulfate (morphine) 2 mg Q4H PRN IV .PAIN 7-10 Last administered on 01/22/19at 06:12; Admin Dose 2 MG; Start 01/17/19 at 23:00 Docusate Sodium (Colace) 100 mg Q12H PRN PO .CONSTIPATION; Start 01/17/19 at 23:00 Magnesium Hydroxide (Milk Of Mag) 30 ml DAILY PRN PO .CONSTIPATION; Start at 23:00 Pantoprazole (Protonix Tab) 40 mg DAILY@06 PO Last administered on 01/22/19at 06:06; Admin Dose 40 MG; Start 01/18/19 at 06:00 Heparin Sodium (Porcine) (Heparin (5000 Units/1ml)) 5,000 unit Q12 SC Last administered on 01/21/19 20:22; Admin Dose 5,000 UNIT; Start 01/18/19 at 09:00; Status Hold Aspirin (Halfprin) 81 mg DAILY PO Last administered on 01/21/19 09:35; Admin Dose 81 MG; Start 01/18/19 at 09:00 Citalopram Hydrobromide (Celexa) 20 mg DAILY PO Last administered on 01/22/19 08:19; Admin Dose 20 MG; Start 01/18/19 at 09:00 Docusate Sodium (Colace) 100 mg BID PO Last administered on 01/20/19 21:56; Admin Dose 100 MG; Start 01/18/19 at 09:00 Fluticasone/ Vilanterol (Breo Ellipta 100-25 Mcg Inh) 1 inh DAILY INH Last administered on 01/22/19 08:22; Admin Dose 1 INH; Start 01/18/19 at 09:00 Gabapentin (Neurontin) 300 mg TID PO Last administered on 01/22/19 08:19; Admin Dose 300 MG; Start 01/18/19 at 09:00 Loratadine (Claritin) 10 mg DAILY PO Last administered on 01/22/19 08:18; Admin Dose 10 MG; Start 01/18/19 at 09:00 Ceftriaxone Sodium 50 ml @ 100 mls/hr Q24H IVPB Last administered on 01/22/19 08:29; Admin Dose 100 MLS/HR; Start 01/18/19 at 09:00 Levothyroxine Sodium (Synthroid) 50 mcg BEFORE BREAKFAST PO Last administered on 01/22/19 06:06; Admin Dose 50 MCG; Start 01/19/19 at 07:00 Ferric Sodium Gluconate Complex 125 mg/Sodium Chloride 110 ml @ 110 mls/hr DAILY@1300 IVPB Last administered on 01/21/19 14:51; Admin Dose 110 MLS/HR; Start 01/19/19 at 13:00; Stop 01/23/19 at 13:59 Zolpidem Tartrate (Ambien) 5 mg HS PRN PO INSOMNIA Last administered on 01/21/19 20:19; Admin Dose 5 MG; Start 01/18/19 at 23:30 Metoprolol Tartrate (Lopressor) 25 mg BID PO Last administered on 01/22/19 08:20; Admin Dose 25 MG; Start 01/20/19 at 11:30 Amlodipine Besylate (Norvasc) 5 mg BID PO Last administered on 01/22/19 08:21; Admin Dose 5 MG; Start 01/20/19 at 21:00 Hydralazine HCl (Apresoline) 25 mg TID PO Last administered on 01/22/19 08:20; Admin Dose 25 MG; Start 01/20/19 at 21:00 Lubiprostone (Amitiza) 24 mcg BID PO ; Start 01/22/19 at 12:00; Status UNV BECKIE WHITLEY MD Jan 22, 2019 12:09
[2019-01-22] MEDS: SOD FERRIC GLUC COMPLX 125 MG in SOD CHLORIDE 0.9% 100 ML IVPB SCH (13:35)
[2019-01-22] MEDS: LUBIPROSTONE 24 MCG CAP PO SCH ×2 (13:35→20:17)
[2019-01-22] MEDS: ACETAMINOPHEN 325 MG TAB PO PRN (15:22)
[2019-01-22] MEDS ORDERED: METOPROLOL 25 MG TAB PO ONE (16:00)
[2019-01-22] MEDS: NITROGLYCERIN (SL) 0.4 MG TAB SL PRN ×3 (16:01→16:33)
[2019-01-22] MEDS: CLOTRIMAZOLE 1% 30 GM CR TOP SCH ×2 (16:28→20:20)
--- NOTE | 2019-01-22 16:49 | PN ---
DATE: 01/22/2019 SUBJECTIVE: The patient was seen. The patient is complaining of generalized body ache, requesting B aclofen. The patient is weak and complaining of back pain. She did not participate with physical Kaznachey john. I appreciate Dr. Sinclair's followup as the patient underwent EGD and colonoscopy. EGD basical ly shows normal duodenum in the ampulla. It says gastritis and the colonoscopy showed diverticulosis in the left side of the colon and the 5 to 6 cm ulcer diameter identified in the prececal area of as cending colon. Biopsies were obtained. This may be ischemic stercoral ulcer, otherwise poor prep. I recommend to keep patient normotensive and stop Amitiza. PHYSICAL EXAMINATION: VITAL SIGNS: Temperature 98.3, pulse 88, respirations 12, blood pressure 142/65, saturation 96%. GENERAL: The patient is pale, obese. CARDIOVASCULAR: S1 and S2. Regular rate. LUNGS: Clear. ABDOMEN: Soft, nontender. EXTREMITIES: No clubbing, cyanosis or edema. LABORATORY DATA: White count 6.2, hemoglobin 8.4, hematocrit 24, platelet count is 118, neutrophils 68%, lymphs 17%. Chemistry: Sodium 138, potassium 3.8, chloride 107, bicarbonate 22, BUN is 13, cre atinine 1.22 and glucose of 125. Magnesium is slightly low at 1.6. Supplements were given. Urine c ulture shows E. coli greater than 100,000, sensitive to Rocephin. CURRENT MEDICATIONS: Include: 1. Amitiza 24 mcg b.i.d. 2. Norvasc 5 mg b.i.d. 3. Hydralazine 25 t.i.d. 4. Lopressor 25 b.i.d. 5. Ferric iron IV daily. 6. Synthroid 50 mcg daily. 7. Ambien 5 mg at bedtime. 8. Aspirin 81 mg daily on hold. 9. Celexa 20 mg daily. 10. Colace 100 b.i.d. 11. The patient refused Breo 1 puff daily. 12. Neurontin 300 t.i.d. 13. Claritin 10 mg daily. 14. Cephalexin 1 gram q.24 hours. 15. Protonix 40 mg daily. 16. Tylenol. 17. [place]. 18. Morphine. 19. Colace. 20. Milk of Magnesia. 21. P.r.n. medications. ASSESSMENT AND PLAN: This is a 68-year-old female with history of congestive heart failure , hypertension, chronic obstructive pulmonary disease, hypothyroidism, diabetes mellitus, who present ed with encephalopathy due to acute renal failure, urinary tract infection and anemia. 1. Respiratory: Stable. No evidence of fluid overload state. Continue Breo and O2 support. 2. Cardiovascular: Blood pressure is better controlled. Continue above regimen. 3. Hypothyroidism. Continue Synthroid. TSH is at range. 4. Depression. Continue Celexa. Mood appears to be stable. 5. Urinary tract infection. Continue Rocephin. 6. Acute renal failure, improved with hydration. 7. Anemia with ulcer noted. Follow up by pathology report. Try to avoid NSAIDs or aspirin. Contin ue PPI. 8. Generalized body ache. Physical therapy as tolerated. 9. Consider transfer to SNF for ongoing physical therapy and close monitoring. We will follow. Ko wren was discussed with the son over the phone. His name Luis Anaya, phone number [phone]. Dictated By: CHASITY PHILIP/JONAS Conf#: [id number] DID#: [id number] CC: BRANDON SHAH DO;*EndCC*
[2019-01-22] MEDS: BACLOFEN 10 MG TAB PO SCH (20:17)
[2019-01-22] MEDS: METOPROLOL 50 MG TAB PO SCH (20:18)
[2019-01-22] MEDS ORDERED: METOPROLOL 25 MG TAB PO SCH (21:00)
[2019-01-22] MEDS: ZOLPIDEM 5 MG TAB PO PRN (21:09)
[2019-01-23 01:17] VITALS: BP 163/75; PULSE 98; RESP 18
[2019-01-23] MEDS: HYDROCODONE/APAP (5/325) TAB PO PRN ×3 (02:59→16:23)
--- NOTE | 2019-01-23 06:29 | PN ---
DATE: 01/21/2019 SUBJECTIVE: The patient is stable. The patient pending EGD, colonoscopy today. OBJECTIVE: VITAL SIGNS: Blood pressure is 165/82, pulse 97, respirations 18, temperature 98.3. HEENT: Head is normocephalic. NECK: Supple. HEART: Regular rate. LUNGS: Show diminished breath sounds at the base. ABDOMEN: Soft, nontender to palpation without rebound or guarding. EXTREMITIES: Negative for clubbing, cyanosis, no edema. DERMATOLOGIC: No rashes. MUSCULOSKELETAL: No joint effusion. NEUROLOGIC: No change in exam. MEDICATIONS: Have been reviewed. LABORATORY DATA: Has been reviewed. IMAGING STUDIES: Have been reviewed. ASSESSMENT AND PLAN: 1. Nonoliguric acute kidney injury on top of chronic kidney disease with unknown baseline creatinine . Etiology of acute kidney injury is secondary to hemodynamics. Renal function is improved. Contin ue to monitor. Continue supportive care, renally dose all medications. 2. Anemia of iron deficiency, continue IV Ferrlecit. 3. Hypomagnesemia. Continue to monitor and replete as needed. 4. Metabolic acidosis secondary to acute kidney injury, resolved. 5. Mineral bone disorder. Monitor calcium and phosphorus levels. 6. , continue antibiotic regimen. 7. Thrombocytopenia. Continue to monitor. 8. Generalized weakness. 9. Occult gastrointestinal bleed. The patient is pending EGD, colonoscopy. Dictated By: BRANDON COLLINS/JONAS Conf#: [id number] DID#: [id number]
[2019-01-23] MEDS: LEVOTHYROXINE 50 MCG TAB PO SCH (06:57)
[2019-01-23] MEDS: PANTOPRAZOLE (EC) 40 MG TAB PO SCH (06:58)
[2019-01-23 07:20] VITALS: BP 151/58; PULSE 74; RESP 20
--- NOTE | 2019-01-23 08:22 | CONS ---
Assessment/Plan Assessment/Plan Hospital Course (Demo Recall) 68 yo male presents with anemia with positive FOB, s/p EGD/colon by Dr Sinclair which found gastritis and a large ulcer in the prececal area 1. Anemia, multifactorial. Anemia of chronic disease plus occult gastrointestinal bleeding. 2. Renal failure is gradually improving. 3. Hypothyroidism. 4. Depression. 5. Urinary tract infection. 6. Generalized body ache 7. Constipation 8. Large ulcer in the prececal area biopsy report pending 9. Gastritis 10. Elevated CEA levels, 6.4 Plan HOld stool softeners for loose stools, consider bed [place], spoke with RN , Arelis Pending pathology Keep SBP below 100 Continue with amitiza 24 mcg bid Please hold asa, NSAID and all anti coagulants Monitor H&H and for active GI bleeding Monitor CEA as an outpatient Patient may need repeat colonoscopy as an outpatient since the colon was not clean Physical therapy Dr Sinclair's office number provided to patient, she has been asked to follow up as an outpatient for repeat colonoscopy and to monitor CEA levels. Pt examined and plan of care d/w Dr Sinclair Consultation Date/Type/Reason Admit Date/Time Jan 17, 2019 at 23:00 Initial Consult Date Date/Time of Note DATE: 01/23/19 TIME: 08:08 24 HR Interval Summary Free Text/Dictation Abdominal discomfort in epigastric area. No nausea. States she is hesitant to eat because she has desire to have bm and its not easy for her to get to restroo m. NO active bleeding noted. Exam/Review of Systems Exam Vitals Vital Signs Date Temp Pulse Resp B/P (MAP) Pulse Ox O2 O2 Flow FiO2 Time Delivery Rate 01/23/19 98.2 74 20 151/58 97 07:20 (89) 01/23/19 Room Air 01:17 01/21/19 2.0 13:25 01/20/19 27 11:05 Intake and Output 01/22/19 01/22/19 01/23/19 1515:00 23:00 07:00 IntakeIntake Total 200 ml 460 ml 500 ml BalanceBalance 200 ml 460 ml 500 ml Constitutional: alert, oriented Psych: no complaints Head: normocephalic Eyes: nl sclera, PERRL ENMT: mucosa pink and moist Respiratory: normal air movement Cardiovascular: regular rate and rhythm Gastrointestinal: soft, non-tender Musculoskeletal: muscle weakness Neurological: nl mental status Results Result Diagram: 01/23/19 0453 01/23/19 0453 Results 24hrs Laboratory Tests Test 01/22/19 16:02 01/22/19 22:23 01/23/19 04:53 Troponin I 0.040 0.036 White Blood Count 6.2 Red Blood Count 2.61 L Hemoglobin 8.2 L Hematocrit 24.5 L Mean Corpuscular Volume 93.9 Mean Corpuscular Hemoglobin 31.4 Mean Corpuscular Hemoglobin Concent 33.5 Red Cell Distribution Width 13.1 Platelet Count 122 L Mean Platelet Volume 9.5 Immature Granulocytes % 1.600 H Neutrophils % 63.6 Lymphocytes % 23.0 Monocytes % 8.4 Eosinophils % 2.9 Basophils % 0.5 Nucleated Red Blood Cells % 0.0 Immature Granulocytes # 0.100 H Neutrophils # 3.9 Lymphocytes # 1.4 Monocytes # 0.5 Eosinophils # 0.2 Basophils # 0.0 Nucleated Red Blood Cells # 0.0 Sodium Level 140 Potassium Level 3.8 Chloride Level 110 Carbon Dioxide Level 23 Anion Gap 7 Blood Urea Nitrogen 16 Creatinine 1.09 H Est Glomerular Filtrat Rate mL/min 50 L Glucose Level 111 Calcium Level 8.9 Phosphorus Level 2.8 Magnesium Level 2.0 Medications Medication Current Medications IV Flush (NS 3 ml) 3 ml PER PROTOCOL IV ; Start 01/17/19 at 23:00 Ondansetron HCl (Zofran Inj) 4 mg Q6H PRN IV NAUSEA/VOMITING Last administered on 01/21/19 08:05; Admin Dose 4 MG; Start 01/17/19 at 23:00 Acetaminophen (Tylenol Tab) 650 mg Q6H PRN PO .PAIN 1-3 OR TEMP Last administered on 01/22/19 15:22; Admin Dose 650 MG; Start 01/17/19 at 23:00 Acetaminophen/ Hydrocodone Bitart ([place] (5/325)) 1 tab Q6H PRN PO .PAIN 4-6 Last administered on 01/23/19 06:58; Admin Dose 1 TAB; Start 01/17/19 at 23:00 Morphine Sulfate (morphine) 2 mg Q4H PRN IV .PAIN 7-10 Last administered on 01/22/19 15:57; Admin Dose 2 MG; Start 01/17/19 at 23:00 Docusate Sodium (Colace) 100 mg Q12H PRN PO .CONSTIPATION; Start 01/17/19 at 23:00 Magnesium Hydroxide (Milk Of Mag) 30 ml DAILY PRN PO .CONSTIPATION; Start 01/17/19 at 23:00 Pantoprazole (Protonix Tab) 40 mg DAILY@06 PO Last administered on 01/23/19 06:58; Admin Dose 40 MG; Start 01/18/19 at 06:00 Heparin Sodium (Porcine) (Heparin (5000 Units/1ml)) 5,000 unit Q12 SC Last adm inistered on 01/21/19 20:22; Admin Dose 5,000 UNIT; Start 01/18/19 at 09:00; Status Hold Aspirin (Halfprin) 81 mg DAILY PO Last administered on 01/21/19 09:35; Admin Dose 81 MG; Start 01/18/19 at 09:00 Citalopram Hydrobromide (Celexa) 20 mg DAILY PO Last administered on 01/22/19 08:19; Admin Dose 20 MG; Start 01/18/19 at 09:00 Docusate Sodium (Colace) 100 mg BID PO Last administered on 01/22/19 20:17; Admin Dose 100 MG; Start 01/18/19 at 09:00 Fluticasone/ Vilanterol (Breo Ellipta 100-25 Mcg Inh) 1 inh DAILY INH Last administered on 01/22/19 08:22; Admin Dose 1 INH; Start 01/18/19 at 09:00 Gabapentin (Neurontin) 300 mg TID PO Last administered on 01/22/19 20:17; Admin Dose 300 MG; Start 01/18/19 at 09:00 Loratadine (Claritin) 10 mg DAILY PO Last administered on 01/22/19 08:18; Admin Dose 10 MG; Start 01/18/19 at 09:00 Ceftriaxone Sodium 50 ml @ 100 mls/hr Q24H IVPB Last administered on 01/22/19 08:29; Admin Dose 100 MLS/HR; Start 01/18/19 at 09:00 Levothyroxine Sodium (Synthroid) 50 mcg BEFORE BREAKFAST PO Last administered on 01/23/19 06:57; Admin Dose 50 MCG; Start 01/19/19 at 07:00 Ferric Sodium Gluconate Complex 125 mg/Sodium Chloride 110 ml @ 110 mls/hr DAILY@1300 IVPB Last administered on 01/22/19 13:35; Admin Dose 110 MLS/HR; Start 01/19/19 at 13:00; Stop 01/23/19 at 13:59 Zolpidem Tartrate (Ambien) 5 mg HS PRN PO INSOMNIA Last administered on 01/22/19 21:09; Admin Dose 5 MG; Start 01/18/19 at 23:30 Amlodipine Besylate (Norvasc) 5 mg BID PO Last administered on 01/22/19 20:19; Admin Dose 5 MG; Start 01/20/19 at 21:00 Hydralazine HCl (Apresoline) 25 mg TID PO Last administered on 01/22/19 20:19; Admin Dose 25 MG; Start 01/20/19 at 21:00 Lubiprostone (Amitiza) 24 mcg BID PO Last administered on 01/22/19 20:17; Admin Dose 24 MCG; Start 01/22/19 at 12:00 Clotrimazole (Lotrimin Cr) 1 applic BID TOP Last administered on 01/22/19 20:20; Admin Dose 1 APPLIC; Start 01/22/19 at 14:30 Baclofen (Lioresal) 10 mg TID PO Last administered on 01/22/19 20:17; Admin Dose 10 MG; Start 01/22/19 at 21:00 Nitroglycerin (Nitroglycerin (Sl Tab) 0.4 Mg) 1 tab Q5M PRN SL ANGINA Last administered on 01/22/19 16:33; Admin Dose 1 TAB; Start 01/22/19 at 16:00 Metoprolol Tartrate (Lopressor) 50 mg BID PO Last administered on 01/22/19 20:18; Admin Dose 50 MG; Start 01/22/19 at 21:00 CODY PETTIT Jan 23, 2019 08:19
[2019-01-23] MEDS: CEFTRIAXONE 1 GM/50 ML (PMX) 50 ML IVPB SCH (08:44)
[2019-01-23] MEDS: LORATADINE 10 MG TAB PO SCH (08:45)
[2019-01-23] MEDS: GABAPENTIN 300 MG CAP PO SCH ×3 (08:45→20:45)
[2019-01-23] MEDS: FLUTICASONE/VILANTEROL 100-25 INH SCH (08:45)
[2019-01-23] MEDS: AMLODIPINE 5 MG TAB PO SCH ×2 (08:51→20:46)
[2019-01-23] MEDS: LUBIPROSTONE 24 MCG CAP PO SCH ×2 (08:52→20:45)
[2019-01-23] MEDS: ASPIRIN (EC) 81 MG TAB PO SCH (08:52)
[2019-01-23] MEDS: METOPROLOL 50 MG TAB PO SCH ×2 (08:52→20:46)
[2019-01-23] MEDS: BALSAM PERU/CASTOR OIL 60 GM TUBE TOP SCH ×2 (08:52→20:47)
[2019-01-23] MEDS: CITALOPRAM 20 MG TAB PO SCH (08:52)
[2019-01-23] MEDS: CLOTRIMAZOLE 1% 30 GM CR TOP SCH ×2 (08:53→20:47)
[2019-01-23] MEDS: BACLOFEN 10 MG TAB PO SCH ×3 (08:56→20:45)
--- NOTE | 2019-01-23 09:38 | PN ---
DATE: 01/23/2019 SUBJECTIVE: The patient is stable. No events overnight. No fevers, chills, nausea or vomiting. OBJECTIVE: VITAL SIGNS: Blood pressure is 163/75, respirations 18, pulse 98, temperature 98.8. HEENT: Head is normocephalic. NECK: Supple. HEART: Regular rate. LUNGS: Show diminished breath sounds at the base. ABDOMEN: Soft, nontender to palpation without rebound or guarding. EXTREMITIES: Negative for clubbing, cyanosis, no edema. DERMATOLOGIC: No rashes. MUSCULOSKELETAL: No joint effusion. NEUROLOGIC: No change in exam. MEDICATIONS: Have been reviewed. LABORATORY DATA: Has been reviewed. IMAGING STUDIES: Have been reviewed. ASSESSMENT AND PLAN: 1. Nonoliguric acute kidney injury with unknown baseline creatinine. Etiology of acute kidney injur y is secondary to hemodynamics. Renal function is improved. Continue to monitor. Continue supporti ve care, renally dose all medications. 2. Anemia with iron deficiency. The patient is completing course of IV Ferrlecit. 3. Hypomagnesemia. Continue to monitor and replete as needed. 4. Metabolic acidosis secondary to acute kidney injury, resolved. 5. Mineral bone disorder. Monitor calcium and phosphorus levels. 6. Urinary tract infection. Continue current antibiotic regimen. 7. Generalized weakness. 8. GI bleed. The patient is status post EGD, colonoscopy with evidence of hemorrhoids and gastritis . Continue proton pump inhibitor. Dictated By: BRANDON SHAH DO NR/NTS Conf#: [id number] DID#: [id number] CC: CHASITY MCKEON MD; BRANDON SHAH DO;*EndCC*
--- NOTE | 2019-01-23 13:59 | PN ---
DATE: 01/23/2019 SUBJECTIVE: The patient seen. Yesterday, patient complained of chest pain. Various tests were done including troponins which were negative, chest x-ray which was negative and EKG did not show any sig nificant abnormality. The patient also stated that when she got out of the bathroom, she almost niurka mikel. Due to the above 2 issues, I decided to transfuse 1 unit of PRBC and the patient actually wante d that. So, the plan is to transfuse 1 unit of PRBC. In addition, as patient has been refusing phys ical therapy and overall, she appears to be very weak, we are planning to send her to the [facility] facility. The comp field case manager and the patient will discuss a facility place. PHYSICAL EXAMINATION: VITAL SIGNS: Temperature 98.2, pulse 74, respirations 20, blood pressure 151/58, saturation 97%. GENERAL: No acute distress. HEENT: Normocephalic, atraumatic, very pale. CARDIOVASCULAR: S1 and S2. LUNGS: Decreased bilaterally otherwise. ABDOMEN: Soft, nontender. EXTREMITIES: No clubbing, cyanosis, or edema. LABORATORY DATA: White count 6.2, hemoglobin 8.2, hematocrit 24, platelet count of 122, neutrophils 64%, lymphs 23%. Chemistry: Sodium 140, potassium 3.8, chloride 110, bicarbonate 23, BUN 16, creati nine 1.09 and glucose of 111. Again, serial troponins were negative yesterday. CEA was 6.4. The pa nathaniel did undergo an EGD and a colonoscopy and EGD just shows gastritis and a colonoscopy showed a 5 to 6 cm ulcer in diameter identified in the presacral area of ascending colon. This may be ischemic or also. The patient was started on Amitiza. Pathology report is pending. Also due to that, will transfuse 1 unit of blood due to risk of bleeding. MEDICATIONS: 1. Baclofen 10 mg t.i.d. 2. Metoprolol tartrate 50 b.i.d. 3. Nitroglycerin p.r.n. 4. Lotrimin cream b.i.d. 5. Amitiza 25 mg b.i.d. 6. Norvasc 5 mg b.i.d. 7. Hydralazine 25 t.i.d. 8. Synthroid 50 mcg daily. 9. Ambien p.r.n. 10. Aspirin 81 mg daily. 11. Celexa 20 mg daily. 12. Breo daily. 13. Neurontin 300 t.i.d. 14. Claritin 10 mg daily. 15. Rocephin 1 gram q.24 hours. 16. Protonix 40 mg daily. P.R.N. MEDICATIONS: 1. Zofran. 2. [place]. 3. Morphine. 4. Colace. 5. Milk of magnesia. ASSESSMENT AND PLAN: This is a 68-year-old female with history of congestive heart failure , hypertension, congestive heart failure, chronic obstructive pulmonary disease, hypothyroidism, diab etes mellitus, presented with encephalopathy, acute renal failure, urinary tract infection and anemia . 1. Respiratory. Stable. No evidence of fluid overload state. Continue Breo and O2 support as need ed. 2. Cardiovascular. Continue above blood pressure meds. Blood pressure is better controlled. The p atient had chest pain. Continue aspirin, beta blockers. 3. Hypothyroidism. Continue Synthroid. 4. Anemia in the setting of symptoms. Will transfuse 1 unit of PRBC. 5. Gastrointestinal ulcer involving the cecum, ascending colon. Continue Protonix. Follow up patho logy report. 6. Acute renal failure. Basically improved significantly with hydration. 7. Generalized body aches. Physical therapy as tolerated. 8. Urinary tract infection. Continue Rocephin. 9. Generalized body ache with chronic pain syndrome. Physical therapy and pain control will be prov ided. 10. Stool softeners as needed. 11. Transfer to senior living facility in the a.m. Dictated By: CHASITY PHILIP/JONAS Conf#: [id number] DID#: [id number]
[2019-01-23 15:08] VITALS: BP 122/72; PULSE 73; RESP 18
[2019-01-23 20:03] VITALS: BP 126/61; PULSE 69; RESP 18
[2019-01-23] MEDS: ZOLPIDEM 5 MG TAB PO PRN (23:06)
[2019-01-24] VITALS (10 sets, daily range): BP systolic 132–174; BP diastolic 36–82; PULSE 64–79; RESP 18
[2019-01-24] MEDS: HYDROCODONE/APAP (5/325) TAB PO PRN ×3 (00:42→17:34)
[2019-01-24] MEDS: LEVOTHYROXINE 50 MCG TAB PO SCH (06:45)
[2019-01-24] MEDS: PANTOPRAZOLE (EC) 40 MG TAB PO SCH (06:45)
[2019-01-24] MEDS: ONDANSETRON 4 MG INJ IV PRN (09:00)
[2019-01-24] MEDS: FLUTICASONE/VILANTEROL 100-25 INH SCH (09:00)
[2019-01-24] MEDS: BALSAM PERU/CASTOR OIL 60 GM TUBE TOP SCH ×2 (09:00→21:24)
[2019-01-24] MEDS: CLOTRIMAZOLE 1% 30 GM CR TOP SCH ×2 (09:00→21:24)
[2019-01-24] MEDS: CEFTRIAXONE 1 GM/50 ML (PMX) 50 ML IVPB SCH (09:01)
[2019-01-24] MEDS: LORATADINE 10 MG TAB PO SCH (09:01)
[2019-01-24] MEDS: GABAPENTIN 300 MG CAP PO SCH ×3 (09:02→20:29)
[2019-01-24] MEDS: AMLODIPINE 5 MG TAB PO SCH ×2 (09:02→20:29)
[2019-01-24] MEDS: ASPIRIN (EC) 81 MG TAB PO SCH (09:03)
[2019-01-24] MEDS: CITALOPRAM 20 MG TAB PO SCH (09:03)
--- NOTE | 2019-01-24 09:08 | PN ---
DATE: 01/24/2019 SUBJECTIVE: The patient is stable. No events overnight. No fevers, chills, nausea or vomiting. OBJECTIVE: VITAL SIGNS: Blood pressure is 134/65, respiration 19, pulse 66, temperature 98.0. HEENT: Head is normocephalic. NECK: Supple. HEART: Regular rate. LUNGS: Show diminished breath sounds at the base. ABDOMEN: Soft, nontender to palpation. No rebound or guarding. EXTREMITIES: Negative for clubbing, cyanosis, no edema. DERMATOLOGIC: No rashes. MUSCULOSKELETAL: No joint effusion. NEUROLOGIC: No change in exam. MEDICATIONS: Have been reviewed. LABORATORY DATA: Has been reviewed. IMAGING STUDIES: Have been reviewed. ASSESSMENT AND PLAN: 1. Nonoliguric acute injury with unknown baseline creatinine. Etiology of acute kidney injury is se condary to hemodynamics. Renal function is improved. Continue to monitor, continue supportive care, renally dose all meds. 2. Anemia of iron deficiency. Patient completed a course of Ferrlecit. 3. Hypomagnesemia. Continue to monitor and replete. 4. Mineral bone disorder. Monitor calcium and phosphorus levels.. 5. Urinary tract infection. Continue current antibiotic regimen. 6. Possible gastrointestinal bleed. The patient is status post colonoscopy with gastrit is. Continue to monitor. Continue PPI. 7. Generalized weakness. Dictated By: BRANDON COLLINS/JONAS Conf#: [id number] DID#: [id number] CC: CHASITY MCKEON MD;*EndCC*
[2019-01-24] MEDS: LUBIPROSTONE 24 MCG CAP PO SCH ×2 (09:11→20:29)
[2019-01-24] MEDS: METOPROLOL 50 MG TAB PO SCH ×2 (09:11→20:29)
[2019-01-24] MEDS: BACLOFEN 10 MG TAB PO SCH ×3 (09:11→20:29)
--- NOTE | 2019-01-24 11:45 | CONS ---
Assessment/Plan Assessment/Plan Assessment/Plan (Daily) male presents with anemia with positive FOB, s/p EGD/colon by Dr Whitley which found gastritis and a large ulcer in the prececal area 1. Anemia, multifactorial. Anemia of chronic disease plus occult gastrointestinal bleeding. 2. Renal failure is gradually improving. 3. Hypothyroidism. 4. Depression. 5. Urinary tract infection. 6. Generalized body ache 7. Constipation 8. Large ulcer in the prececal area biopsy report pending 9. Gastritis 10. Elevated CEA levels, 6.4 Plan HOld stool softeners for loose stools, consider bed whitmore, spoke with RN Arelis Pending pathology Keep SBP below 100 Continue with amitiza 24 mcg bid Please hold asa, NSAID and all anti coagulants Monitor H&H and for active GI bleeding Monitor CEA as an outpatient Patient may need repeat colonoscopy as an outpatient since the colon was not clean Physical therapy Patient will need CAT scan of the abdomen and pelvis for abnormal LFT Consultation Date/Type/Reason Admit Date/Time Jan 17, 2019 at 23:00 Initial Consult Date Date/Time of Note DATE: 01/24/19 TIME: 11:45 24 HR Interval Summary Free Text/Dictation Patient had one episode of emesis Exam/Review of Systems Exam Vitals Vital Signs Date Temp Pulse Resp B/P (MAP) Pulse Ox O2 O2 Flow FiO2 Time Delivery Rate 01/24/19 97.8 72 18 146/65 Room Air 07:48 (92) 01/23/19 94 20:03 01/21/19 2.0 13:25 01/20/19 27 11:05 Intake and Output 01/23/19 01/23/19 01/24/19 1515:00 23:00 07:00 IntakeIntake Total 50 ml 680 ml 350 ml OutputOutput Total 0 ml BalanceBalance 50 ml 680 ml 350 ml Constitutional: alert, oriented, well developed Psych: no complaints, nl mood/affect Head: normocephalic, atraumatic Eyes: nl conjunctiva, EOMI, nl lids, nl sclera, PERRL ENMT: nl external ears & nose, nl lips & teeth, nl nasal mucosa & septum Neck: supple, non-tender Respiratory: clear to auscultation, normal air movement Cardiovascular: regular rate and rhythm, nl pulses Gastrointestinal: soft, nl liver, spleen, non-tender Musculoskeletal: nl extremities to inspection, nl gait and stance Extremities: normal pulses Neurological: SHIP'S CAPTAIN II-XII intact, nl mental status, nl speech, nl strength Skin: nl turgor; No rash or lesions Lymph: nl lymph nodes Results Result Diagram: 01/24/193 01/24/19 0453 Results 24hrs Laboratory Tests Test 01/24/19 04:53 01/24/19 08:45 White Blood Count 6.0 Red Blood Count 3.42 #L Hemoglobin 10.4 #L Hematocrit 31.3 #L Mean Corpuscular Volume 91.5 Mean Corpuscular Hemoglobin 30.4 Mean Corpuscular Hemoglobin Concent 33.2 Red Cell Distribution Width 13.9 Platelet Count 97 #L Mean Platelet Volume 9.8 Immature Granulocytes % 1.300 H Neutrophils % 73.0 Lymphocytes % 18.1 Monocytes % 4.8 Eosinophils % 2.5 Basophils % 0.3 Nucleated Red Blood Cells % 0.0 Immature Granulocytes # 0.080 H Neutrophils # 4.4 Lymphocytes # 1.1 Monocytes # 0.3 Eosinophils # 0.2 Basophils # 0.0 Nucleated Red Blood Cells # 0.0 Sodium Level 140 Potassium Level 3.7 Chloride Level 108 Carbon Dioxide Level 22 Anion Gap 10 Blood Urea Nitrogen 18 Creatinine 1.16 H Est Glomerular Filtrat Rate mL/min 46 L Glucose Level 139 Calcium Level 9.0 Phosphorus Level 3.3 Magnesium Level 1.8 Total Bilirubin 0.3 Direct Bilirubin 0.00 Indirect Bilirubin 0.3 Aspartate Amino Transf (AST/SGOT) 66 H Alanine Aminotransferase (ALT/SGPT) 65 Alkaline Phosphatase 122 H Total Protein 7.1 Albumin 3.6 Globulin 3.50 H Albumin/Globulin Ratio 1.02 Lab Scanned Report BLOOD TRANSFUSION Medications Medication Current Medications IV Flush (NS 3 ml) 3 ml PER PROTOCOL IV ; Start 01/17/19 at 23:00 Ondansetron HCl (Zofran Inj) 4 mg Q6H PRN IV NAUSEA/VOMITING Last administered on 01/24/19at 09:00; Admin Dose 4 MG; Start 01/17/19 at 23:00 Acetaminophen (Tylenol Tab) 650 mg Q6H PRN PO .PAIN 1-3 OR TEMP Last administ ered on 01/22/19at 15:22; Admin Dose 650 MG; Start 01/17/19 at 23:00 Acetaminophen/ Hydrocodone Bitart ([place] (5/325)) 1 tab Q6H PRN PO .PAIN 4-6 Last administered on 01/24/19 09:03; Admin Dose 1 TAB; Start 01/17/19 at 23:00 Morphine Sulfate (morphine) 2 mg Q4H PRN IV .PAIN 7-10 Last administered on 01/22/19 15:57; Admin Dose 2 MG; Start 01/17/19 at 23:00 Docusate Sodium (Colace) 100 mg Q12H PRN PO .CONSTIPATION; Start 01/17/19 at 23:00 Magnesium Hydroxide (Milk Of Mag) 30 ml DAILY PRN PO .CONSTIPATION; Start 01/17/19 at 23:00 Pantoprazole (Protonix Tab) 40 mg DAILY@06 PO Last administered on 01/24/19 06:45; Admin Dose 40 MG; Start 01/18/19 at 06:00 Heparin Sodium (Porcine) (Heparin (5000 Units/1ml)) 5,000 unit Q12 SC Last administered on 01/21/19 20:22; Admin Dose 5,000 UNIT; Start 01/18/19 at 09:00; Status Hold Aspirin (Halfprin) 81 mg DAILY PO Last administered on 01/24/19 09:03; Admin Dose 81 MG; Start 01/18/19 at 09:00 Citalopram Hydrobromide (Celexa) 20 mg DAILY PO Last administered on 01/24/19 09:03; Admin Dose 20 MG; Start 01/18/19 at 09:00 Fluticasone/ Vilanterol (Breo Ellipta 100-25 Mcg Inh) 1 inh DAILY INH Last administered on 01/24/19 09:00; Admin Dose 1 INH; Start 01/18/19 at 09:00 Gabapentin (Neurontin) 300 mg TID PO Last administered on 01/24/19 09:02; Admin Dose 300 MG; Start 01/18/19 at 09:00 Loratadine (Claritin) 10 mg DAILY PO Last administered on 01/24/19 09:01; Admin Dose 10 MG; Start 01/18/19 at 09:00 Ceftriaxone Sodium 50 ml @ 100 mls/hr Q24H IVPB Last administered on 01/24/19 09:01; Admin Dose 100 MLS/HR; Start 01/18/19 at 09:00 Levothyroxine Sodium (Synthroid) 50 mcg BEFORE BREAKFAST PO Last administered on 01/24/19 06:45; Admin Dose 50 MCG; Start 01/19/19 at 07:00 Zolpidem Tartrate (Ambien) 5 mg HS PRN PO INSOMNIA Last administered on 01/23/19 23:06; Admin Dose 5 MG; Start 01/18/19 at 23:30 Amlodipine Besylate (Norvasc) 5 mg BID PO Last administered on 01/24/19 09:02; Admin Dose 5 MG; Start 01/20/19 at 21:00 Hydralazine HCl (Apresoline) 25 mg TID PO Last administered on 01/24/19 09:02; Admin Dose 25 MG; Start 01/20/19 at 21:00 Lubiprostone (Amitiza) 24 mcg BID PO Last administered on 01/24/19 09:11; Admin Dose 24 MCG; Start 01/22/19 at 12:00 Clotrimazole (Lotrimin Cr) 1 applic BID TOP Last administered on 01/24/19 09:0 0; Admin Dose 1 APPLIC; Start 01/22/19 at 14:30 Baclofen (Lioresal) 10 mg TID PO Last administered on 01/24/19 09:11; Admin Dose 10 MG; Start 01/22/19 at 21:00 Nitroglycerin (Nitroglycerin (Sl Tab) 0.4 Mg) 1 tab Q5M PRN SL ANGINA Last administered on 01/22/19 16:33; Admin Dose 1 TAB; Start 01/22/19 at 16:00 Metoprolol Tartrate (Lopressor) 50 mg BID PO Last administered on 01/24/19 09:11; Admin Dose 50 MG; Start 01/22/19 at 21:00 BECKIE WHITLEY MD Jan 24, 2019 11:45
[2019-01-24] MEDS ORDERED: IOHEXOL 14.3 MG(I)/ML (ADULT) BTL PO ONE (12:00)
--- NOTE | 2019-01-24 14:29 | PDOCDIS ---
Discharge Instructions CONDITION Eitnf6Im Patient Condition: Ineki6w Stable HOME CARE INSTRUCTIONS: [id number] Diet Instructions: Wryvy5w Regular ACTIVITY: [id number] Activity Restrictions: [id number] Slowly Increase Activity Rest between Activity Avoid heavy lifting Do not Drive Do not operate Machinery FOLLOW UP/APPOINTMENTS Follow-up Plan [facility], see reconciliation CHASITY MCKEON MD Jan 24, 2019 14:29
--- NOTE | 2019-01-24 14:58 | RADRPT ---
Vent Rate: 95 bpm RR Interval: 628 msec MI Interval: 147 msec QRS Duration: 76 msec QT Interval: 376 msec QTC Interval: 474 msec P-R-T [place]: 54 - 15 - 27 degrees Sinus rhythm...normal P axis, V-rate 50- 99 Electronically Signed By: Carlos Alberto Reyes
[2019-01-24] MEDS ORDERED: MAGNESIUM CITRATE 300 ML BTL PO ONE (20:00)
--- NOTE | 2019-01-24 21:33 | DS ---
DATE OF ADMISSION: 01/17/2019 DATE OF DISCHARGE: 01/24/2019 REASON FOR ADMISSION: Encephalopathy, acute renal failure, UTI, metabolic acidosis. HOSPITAL COURSE: The patient is a 68-year-old overweight female with history of hypertensi on, anxiety disorder, chronic pain syndrome, COPD, depression, [place], CHF, neuropathy, diabetes mellitus , hypothyroidism, psychiatric disorder who lives in the [facility]. She was noted to be weaker with generalized body ache and complaining of chest pain. We decided to send her to the hospital for evaluation. Upon presentation, BUN, creatinine was 60/4.56 suggestive of profou nd renal failure. Potassium was 5.6. She was found to have UTI. Lactic acid was normal. The mike ocasio was hydrated and is on Rocephin. Ultimately, she was admitted. Multiple physicians saw the mike ocasio in consultation including Dr. Murrieta, the edi manager, and Dr. Sinclair, the GI specialist. Durin g her stay she was hydrated aggressively with good results of kidney function improved to a creatinin e of 1.16. Her CEA was slightly high. The patient had positive occult blood. Colonoscopy was perfo rmed. EGD shows normal duodenum and ampulla. Review of pathology and colonoscopy showed diverticulo sis in left side of the colon 5 to 6 cm in diameter identified in the presacral area ascending colon; two biopsies obtained to confirm diagnosis. This could be ischemic, ____ also. Otherwise poor prep . Recommend to start Amitiza. The patient overall has been doing good. Renal ultrasound did show m ild decrease in echogenicity of both kidneys suggesting medical renal disease. CT scan of the brain upon admission due to encephalopathy just showed two old lacunar infarcts measuring up to approximate ly 5 to 6 mm in the bilateral mid basal ganglia. Chest x-ray on 01/22/2019 showed no acute cardiopul monary disease. No significant change. Urine culture shows E. coli pansensitive, as she was on Roce phin throughout the stay. We will continue Levaquin for a few more days. Otherwise, the patient can be discharged. CAT scan was ordered by the GI specialist due to slight elevation of LFTs and elevat ed CEA, but overall the patient can do that and can be discharged later on. In the meantime, she is weak. She needs physical therapy, but overall tolerating diet better. DISCHARGE MEDICATIONS: The patient will be discharged with the following medications: 1. Tylenol 650 q.6h. p.r.n. 2. Norvasc 5 mg b.i.d. 3. Aspirin 81%. We will hold it for 2 weeks due to patient's ulcer. 4. Baclofen 10 mg t.i.d. 5. ____ b.i.d. 6. Celexa 20 mg daily. 7. Lotrimin cream b.i.d. 8. Colace 100 q.12h. 9. Breo 1 puff daily. 10. Neurontin 300 t.i.d. 11. Hydralazine 25 t.i.d. 12. [place] 5/325 q.6h. p.r.n. 13. Synthroid 50 mcg daily. 14. Claritin 10 mg daily. 15. Amitiza 24 mcg b.i.d. 16. Metoprolol tartrate 50 b.i.d. 17. Zofran p.r.n. 18. Protonix 40 mg daily. 19. Ambien as directed. 20. Seroquel 25 three times a day. 21. Zocor 20 mg at bedtime. 22. Levaquin 5 mg daily for 2 days. 23. Ferrous sulfate 75 daily. FINAL DIAGNOSES: 1. Acute encephalopathy, likely toxic metabolic. 2. Acute renal failure. 3. Metabolic acidosis. 4. Urinary tract infection. 5. Anemia of chronic disease. 6. Iron deficiency anemia. 7. History of remote cardiovascular accident as CAT scan. 8. Hypertension. 9. Tendency for congestive heart failure. 10. History of myocardial infarction. 11. Atherosclerotic cardiovascular disease. 12. Chronic obstructive pulmonary disease, compensated. 13. Depression. 14. Chronic pain syndrome. 15. Diabetic neuropathy. 16. Diabetes mellitus. 17. Hypothyroidism. 18. Psychiatric disorder. 19. Generalized body ache, chronic pain syndrome. 20. Duodenal ulcer. Hold on aspirin for 2 weeks. 21. Mild elevation of CEA at 6.4, otherwise discharge after the CT scan. DIET: As tolerated. ADA 1800, 2-gram sodium. ACTIVITY: With physical therapy. Dictated By: CHASITY PHILIP/JONAS Conf#: [id number] DID#: [id number] CC: CHASITY MCKEON MD;*EndCC*
[2019-01-25 05:24] VITALS: BP 137/59; PULSE 65; RESP 18
[2019-01-25] MEDS: LEVOTHYROXINE 50 MCG TAB PO SCH (06:04)
[2019-01-25] MEDS: PANTOPRAZOLE (EC) 40 MG TAB PO SCH (06:05)
[2019-01-25] MEDS: HYDROCODONE/APAP (5/325) TAB PO PRN ×3 (06:09→19:43)
[2019-01-25 07:44] VITALS: BP 145/65; PULSE 62; RESP 18
[2019-01-25] MEDS: ONDANSETRON 4 MG INJ IV PRN (09:18)
[2019-01-25] MEDS: CEFTRIAXONE 1 GM/50 ML (PMX) 50 ML IVPB SCH (09:18)
[2019-01-25] MEDS: BALSAM PERU/CASTOR OIL 60 GM TUBE TOP SCH ×2 (09:19→21:28)
[2019-01-25] MEDS: CLOTRIMAZOLE 1% 30 GM CR TOP SCH ×2 (09:19→21:29)
--- NOTE | 2019-01-25 09:40 | PN ---
DATE: 01/25/2019 SUBJECTIVE: The patient is stable, no events overnight. OBJECTIVE: VITAL SIGNS: Blood pressure is 137/59, respiration 18, pulse 65, temperature 98.9. HEENT: Head is normocephalic. NECK: Supple. HEART: Regular rate. LUNGS: Show diminished breath sounds at the base. ABDOMEN: Soft, nontender to palpation without rebound or guarding. EXTREMITIES: Negative for clubbing, cyanosis, no edema. DERMATOLOGIC: No rashes. MUSCULOSKELETAL: No joint effusion. NEUROLOGIC: No change in exam. MEDICATIONS: The patient's medications have been reviewed. LABORATORY DATA: Has been reviewed. IMAGING STUDIES: Have been reviewed. ASSESSMENT AND PLAN: 1. Nonoliguric acute kidney injury. Etiology is secondary to hemodynamics. Renal function has shayy edly improved. Continue to monitor. 2. Anemia. Monitor H and H levels. 3. Mineral bone disorder. Monitor calcium and phosphorus levels. 4. UTI. The patient has completed an antibiotic course. 5. Occult gastrointestinal bleed. The patient is status post EGD, colonoscopy with evidence of ____ _also. Continue current medical management. Follow up with GI. Dictated By: BRANDON SHAH DO NR/NTS Conf#: [id number] DID#: [id number] CC: CHASITY MCKEON MD;*EndCC*
[2019-01-25] MEDS: ASPIRIN (EC) 81 MG TAB PO SCH (09:49)
[2019-01-25] MEDS: LORATADINE 10 MG TAB PO SCH (09:49)
[2019-01-25] MEDS: GABAPENTIN 300 MG CAP PO SCH ×3 (09:49→21:26)
[2019-01-25] MEDS: AMLODIPINE 5 MG TAB PO SCH ×2 (09:49→21:00)
[2019-01-25] MEDS: LUBIPROSTONE 24 MCG CAP PO SCH ×2 (09:49→21:25)
[2019-01-25] MEDS: BACLOFEN 10 MG TAB PO SCH ×3 (09:50→21:26)
[2019-01-25] MEDS: CITALOPRAM 20 MG TAB PO SCH (09:50)
[2019-01-25] MEDS: METOPROLOL 50 MG TAB PO SCH ×2 (09:50→21:48)
[2019-01-25] MEDS: FLUTICASONE/VILANTEROL 100-25 INH SCH (09:55)
[2019-01-25 13:07] VITALS: BP 132/59; PULSE 62
[2019-01-25] MEDS ORDERED: PEG/ELECTROLYTES 4L BTL PO ONE (13:30)
--- NOTE | 2019-01-25 14:48 | CONS ---
Assessment/Plan Assessment/Plan Assessment/Plan (Daily) Assessment/Plan Assessment/Plan Assessment/Plan (Daily) male presents with anemia with positive FOB, s/p EGD/colon by Dr Whitley which found gastritis and a large ulcer in the prececal area 1. Anemia, multifactorial. Anemia of chronic disease plus occult gastroint estinal bleeding. 2. Renal failure is gradually improving. 3. Hypothyroidism. 4. Depression. 5. Urinary tract infection. 6. Generalized body ache 7. Constipation 8. Large ulcer in the prececal area biopsy report pending 9. Gastritis 10. Elevated CEA levels, 6.4 Plan HOld stool softeners for loose stools, consider bed whitmore, spoke with RN , Arelis Pending pathology Keep SBP below 100 Continue with amitiza 24 mcg bid Please hold asa, NSAID and all anti coagulants Monitor H&H and for active GI bleeding Monitor CEA as an outpatient Patient may need repeat colonoscopy as an outpatient since the colon was not clean Physical therapy CAT scan of the abdomen shows possible tumor in the right side of the colon which was not prepared during last a colonoscopy. We will repeat colonoscopy tomorrow patient is prepared for last 2 days with a clear liquid diet and will be given GoLYTELY tonight hopefully she will be clean tomorrow Consultation Date/Type/Reason Admit Date/Time Jan 17, 2019 at 23:00 Initial Consult Date Date/Time of Note DATE: 01/25/19 TIME: 14:46 24 HR Interval Summary Free Text/Dictation Patient denies of abdominal pain no nausea no vomiting Exam/Review of Systems Exam Vitals Vital Signs Date Temp Pulse Resp B/P (MAP) Pulse Ox O2 O2 Flow FiO2 Time Delivery Rate 01/25/19 62 132/59 13:07 (83) 01/25/19 98.2 18 96 Room Air 07:44 01/21/19 2.0 13:25 Intake and Output 01/24/19 01/24/19 01/25/19 1515:00 23:00 07:00 IntakeIntake Total 50 ml 300 ml BalanceBalance 50 ml 300 ml Constitutional: alert, oriented, well developed Psych: no complaints, nl mood/affect Head: normocephalic, atraumatic Eyes: nl conjunctiva, EOMI, nl lids, nl sclera, PERRL ENMT: nl external ears & nose, nl lips & teeth, nl nasal mucosa & septum Neck: supple, non-tender Respiratory: clear to auscultation, normal air movement Cardiovascular: regular rate and rhythm, nl pulses Gastrointestinal: soft, nl liver, spleen, non-tender Musculoskeletal: nl extremities to inspection, nl gait and stance Extremities: normal pulses Neurological: BUTCHER FISH II-XII intact, nl mental status, nl speech, nl strength Skin: nl turgor; No rash or lesions Lymph: nl lymph nodes Results Result Diagram: 01/24/1945201/24/19452 Medications Medication Current Medications IV Flush (NS 3 ml) 3 ml PER PROTOCOL IV ; Start 01/17/19 at 23:00 Ondansetron HCl (Zofran Inj) 4 mg Q6H PRN IV NAUSEA/VOMITING Last administered on 01/25/19 09:18; Admin Dose 4 MG; Start 01/17/19 at 23:00 Acetaminophen (Tylenol Tab) 650 mg Q6H PRN PO .PAIN 1-3 OR TEMP Last administered on 01/22/19 15:22; Admin Dose 650 MG; Start 01/17/19 at 23:00 Acetaminophen/ Hydrocodone Bitart ([place] (5/325)) 1 tab Q6H PRN PO .PAIN 4-6 Last administered on 01/25/19 11:47; Admin Dose 1 TAB; Start 01/17/19 at 23:00 Morphine Sulfate (morphine) 2 mg Q4H PRN IV .PAIN 7-10 Last administered on 01/22/19 15:57; Admin Dose 2 MG; Start 01/17/19 at 23:00 Docusate Sodium (Colace) 100 mg Q12H PRN PO .CONSTIPATION; Start 01/17/19 at 23:00 Magnesium Hydroxide (Milk Of Mag) 30 ml DAILY PRN PO .CONSTIPATION; Start 01/17/19 at 23:00 Pantoprazole (Protonix Tab) 40 mg DAILY@06 PO Last administered on 01/25/19 06:05; Admin Dose 40 MG; Start 01/18/19 at 06:00 Heparin Sodium (Porcine) (Heparin (5000 Units/1ml)) 5,000 unit Q12 SC Last administered on 01/21/19 20:22; Admin Dose 5,000 UNIT; Start 01/18/19 at 09:00; Status Hold Aspirin (Halfprin) 81 mg DAILY PO Last administered on 01/25/19 09:49; Admin Dose 81 MG; Start 01/18/19 at 09:00 Citalopram Hydrobromide (Celexa) 20 mg DAILY PO Last administered on 01/25/19 09:50; Admin Dose 20 MG; Start 01/18/19 at 09:00 Fluticasone/ Vilanterol (Breo Ellipta 100-25 Mcg Inh) 1 inh DAILY INH Last administered on 01/25/19 09:55; Admin Dose 1 INH; Start 01/18/19 at 09:00 Gabapentin (Neurontin) 300 mg TID PO Last administered on 01/25/19 13:05; Admin Dose 300 MG; Start 01/18/19 at 09:00 Loratadine (Claritin) 10 mg DAILY PO Last administered on 01/25/19 09:49; Admin Dose 10 MG; Start 01/18/19 at 09:00 Ceftriaxone Sodium 50 ml @ 100 mls/hr Q24H IVPB Last administered on 01/25/19 09:18; Admin Dose 100 MLS/HR; Start 01/18/19 at 09:00 Levothyroxine Sodium (Synthroid) 50 mcg BEFORE BREAKFAST PO Last administered on 01/25/19 06:04; Admin Dose 50 MCG; Start 01/19/19 at 07:00 Zolpidem Tartrate (Ambien) 5 mg HS PRN PO INSOMNIA Last administered on 01/23/19 23:06; Admin Dose 5 MG; Start 01/18/19 at 23:30 Amlodipine Besylate (Norvasc) 5 mg BID PO Last administered on 01/25/19 09:49; Admin Dose 5 MG; Start 01/20/19 at 21:00 Hydralazine HCl (Apresoline) 25 mg TID PO Last administered on 01/25/19 13:05; Admin Dose 25 MG; Start 01/20/19 at 21:00 Lubiprostone (Amitiza) 24 mcg BID PO Last administered on 01/25/19 09:49; Admin Dose 24 MCG; Start 01/22/19 at 12:00 Clotrimazole (Lotrimin Cr) 1 applic BID TOP Last administered on 01/25/19 09:19; Admin Dose 1 APPLIC; Start 01/22/19 at 14:30 Baclofen (Lioresal) 10 mg TID PO Last administered on 01/25/19at 13:03; Admin Dose 10 MG; Start 01/22/19 at 21:00 Nitroglycerin (Nitroglycerin (Sl Tab) 0.4 Mg) 1 tab Q5M PRN SL ANGINA Last administered on 01/22/19at 16:33; Admin Dose 1 TAB; Start 01/22/19 at 16:00 Metoprolol Tartrate (Lopressor) 50 mg BID PO Last administered on 01/25/19at 09:50; Admin Dose 50 MG; Start 01/22/19 at 21:00 BECKIE WHITLEY MD Jan 25, 2019 14:48
[2019-01-25 15:35] VITALS: BP 116/57; PULSE 63; RESP 18
--- NOTE | 2019-01-25 17:32 | PREAC ---
Date/Time of Note Date/Time of Note DATE: 01/25/19 TIME: 17:31 Anesthesia Eval and Record Evaluation Time Pre-Procedure Interview DATE: 01/25/19 TIME: 17:31 Age 68 Sex female NPO: 8 hrs Preoperative diagnosis anemia with positive FOB Planned procedure colonoscopy Past Medical History Past Medical History: Includes Cardio: HTN, [place], CAD, CHF Endo: Diabetes, Hypothyroid Pulm: COPD Renal: ADAMA, CKD Psych: Anxiety Surgery & Anesthesia Issues No known issue Meds Anticoagulation: No Beta Marianela within 24 hr: No Reason Beta Marianela not given: Pt. not on B-Marianela Reported Medications Hydrocodone/Acetaminophen (Hydrocodone-Acetamin 10-325 mg) 1 Each Tablet, 1 TAB PO DAILY 01/18/19 Multivit with Iron-Minerals (Unicomplex-M) 1 Each Tablet, 1 EACH PO DAILY, TAB 09/12/18 Cran/Vitc/Mannose/Inulin/Brom (Uti-Stat Liquid) 3,875 Mg/30 Ml Liquid, 3875 MG PO BID 09/12/18 Ascorbic Acid* (Vitamin C*) 500 Mg Capsule.sa, 500 MG PO DAILY, CAP 09/12/18 Zolpidem Tartrate* (Zolpidem Tartrate*) 5 Mg Tablet, 5 MG PO QHS PRN for INSOMNIA, #30 TAB 09/12/18 Trazodone Hcl* (Trazodone Hcl*) 100 Mg Tablet, 100 MG PO QHS, #30 TAB 09/12/18 Simvastatin* (Zocor*) 40 Mg Tablet, 40 MG PO QHS, #30 TAB 09/12/18 Quetiapine Fumarate* (Quetiapine Fumarate*) 50 Mg Tablet, 50 MG PO HS, TAB 09/12/18 Calcium Carbonate/Vitamin D3 ([place] 500+D Tablet) 1 Each Tablet, 1 EACH PO DAILY, TAB 09/12/18 Magnesium Hydroxide* (Milk Of Magnesia*) 400 Mg/5 Ml Oral.susp, 30 ML PO DAILY, ML 09/12/18 Metoprolol Tartrate* (Lopressor*) 25 Mg Tab, 25 MG PO BID, #60 TAB 09/12/18 Metformin Hcl* (Metformin Hcl*) 1,000 Mg Tablet, 1000 MG PO WITH BREAKFAST DINNE, #60 TAB 09/12/18 Loratadine* (Loratadine*) 10 Mg Tablet, 10 MG PO DAILY, #30 TAB 09/12/18 Lisinopril* (Lisinopril*) 5 Mg Tablet, 5 MG PO DAILY, #30 TAB 09/12/18 Levothyroxine Sodium* (Levoxyl*) 200 Mcg Tablet, 200 MCG PO BEFORE BREAKFAST, #30 TAB 09/12/18 Bisacodyl* (Bisacodyl*) 5 Mg Tablet.dr, 5 MG PO DAILY, TAB 09/12/18 Fluticasone-Vilanterol (Breo Ellipta Inhaler) 100-25 Mcg/Actuation Aer.pow.ba, 1 PUFF INHALATION DAILY, #1 INHALER 09/12/18 Citalopram Hydrobromide* (Celexa*) 20 Mg Tablet, 20 MG PO DAILY, #30 TAB 09/12/18 Clonidine (CLONIDINE) 1 Each Patch.tdwk, 1 PATCH.WK TD Q7D, #4 PATCH.WK 0.1MG 09/12/18 Clonidine Hcl* (Clonidine Hcl*) 0.1 Mg Tab, 0.1 MG PO Q8 PRN for ELEVATED BLOOD PRESSURE, TAB FOR SBP >160 09/12/18 Docusate Sodium* (Dok*) 100 Mg Tablet, 100 MG PO BID, #60 CAP 09/12/18 Na Phos,M-B/Na Phos,Di-Ba (ENEMA UQRXB-OH-FVL) 133 Ml Enema, 133 ML RC EVERY 3 DAYS PRN for CONSTIPATION, ENEMA 09/12/18 Esomeprazole Mag Trihydrate (Nexium) 40 Mg Capsule.dr, 40 MG PO DAILY, #30 CAP 09/12/18 Furosemide* (Furosemide*) 20 Mg Tablet, 20 MG PO DAILY, #60 TAB HOLD FOR SBP<110 09/12/18 Gabapentin* (Gabapentin*) 300 Mg Capsule, 300 MG PO TID, #90 CAP 09/12/18 Bisacodyl (Dulcolax) 10 Mg Supp.rect, 10 MG RC PRN PRN for CONSTIPATION, SUPP.RECT 09/12/18 Baclofen* (Baclofen*) 10 Mg Tablet, 10 MG PO TID, TAB 09/12/18 Aspirin (Low Dose Aspirin) 81 Mg Tablet.dr, 81 MG PO DAILY, #30 TAB 09/12/18 Amlodipine Besylate* (Norvasc*) 5 Mg Tablet, 5 MG PO DAILY, TAB HOLD FOR SBP <110 09/12/18 Current Medications IV Flush (NS 3 ml) 3 ml PER PROTOCOL IV ; Start 01/17/19 at 23:00 Ondansetron HCl (Zofran Inj) 4 mg Q6H PRN IV NAUSEA/VOMITING Last administered on 01/25/19 09:18; Admin Dose 4 MG; Start 01/17/19 at 23:00 Acetaminophen (Tylenol Tab) 650 mg Q6H PRN PO .PAIN 1-3 OR TEMP Last administered on 01/22/19 15:22; Admin Dose 650 MG; Start 01/17/19 at 23:00 Acetaminophen/ Hydrocodone Bitart ([place] (5/325)) 1 tab Q6H PRN PO .PAIN 4-6 Last administered on 01/25/19 11:47; Admin Dose 1 TAB; Start 01/17/19 at 23:00 Morphine Sulfate (morphine) 2 mg Q4H PRN IV .PAIN 7-10 Last administered on 01/22/19 15:57; Admin Dose 2 MG; Start 01/17/19 at 23:00 Docusate Sodium (Colace) 100 mg Q12H PRN PO .CONSTIPATION; Start 01/17/19 at 23:00 Magnesium Hydroxide (Milk Of Mag) 30 ml DAILY PRN PO .CONSTIPATION; Start 01/17/19 at 23:00 Pantoprazole (Protonix Tab) 40 mg DAILY@06 PO Last administered on 01/25/19 06 :05; Admin Dose 40 MG; Start 01/18/19 at 06:00 Heparin Sodium (Porcine) (Heparin (5000 Units/1ml)) 5,000 unit Q12 SC Last administered on 01/21/19 20:22; Admin Dose 5,000 UNIT; Start 01/18/19 at 09:00; Status Hold Aspirin (Halfprin) 81 mg DAILY PO Last administered on 01/25/19 09:49; Admin Dose 81 MG; Start 01/18/19 at 09:00 Citalopram Hydrobromide (Celexa) 20 mg DAILY PO Last administered on 01/25/19 09:50; Admin Dose 20 MG; Start 01/18/19 at 09:00 Fluticasone/ Vilanterol (Breo Ellipta 100-25 Mcg Inh) 1 inh DAILY INH Last administered on 01/25/19 09:55; Admin Dose 1 INH; Start 01/18/19 at 09:00 Gabapentin (Neurontin) 300 mg TID PO Last administered on 01/25/19 13:05; Admin Dose 300 MG; Start 01/18/19 at 09:00 Loratadine (Claritin) 10 mg DAILY PO Last administered on 01/25/19 09:49; Admin Dose 10 MG; Start 01/18/19 at 09:00 Levothyroxine Sodium (Synthroid) 50 mcg BEFORE BREAKFAST PO Last administered on 01/25/19 06:04; Admin Dose 50 MCG; Start 01/19/19 at 07:00 Zolpidem Tartrate (Ambien) 5 mg HS PRN PO INSOMNIA Last administered on 01/23/19 23:06; Admin Dose 5 MG; Start 01/18/19 at 23:30 Amlodipine Besylate (Norvasc) 5 mg BID PO Last administered on 01/25/19 09:49; Admin Dose 5 MG; Start 01/20/19 at 21:00 Hydralazine HCl (Apresoline) 25 mg TID PO Last administered on 01/25/19 13:05; Admin Dose 25 MG; Start 01/20/19 at 21:00 Lubiprostone (Amitiza) 24 mcg BID PO Last administered on 01/25/19 09:49; Admin Dose 24 MCG; Start 01/22/19 at 12:00 Clotrimazole (Lotrimin Cr) 1 applic BID TOP Last administered on 01/25/19 09:19; Admin Dose 1 APPLIC; Start 01/22/19 at 14:30 Baclofen (Lioresal) 10 mg TID PO Last administered on 01/25/19 13:03; Admin Dose 10 MG; Start 01/22/19 at 21:00 Nitroglycerin (Nitroglycerin (Sl Tab) 0.4 Mg) 1 tab Q5M PRN SL ANGINA Last administered on 01/22/19 16:33; Admin Dose 1 TAB; Start 01/22/19 at 16:00 Metoprolol Tartrate (Lopressor) 50 mg BID PO Last administered on 01/25/19 09:50; Admin Dose 50 MG; Start 01/22/19 at 21:00 Meds reviewed: Yes Allergies Coded Allergies: Penicillins (Unverified Allergy, Unknown, 01/18/19) amoxicillin (Unverified Allergy, Unknown, 01/18/19) pepper (genus Capsicum) (Verified Allergy, Unknown, 01/19/19) swells up Uncoded Allergies: ERYTHROMYCIN (Allergy, Unknown, 09/12/18) Allergies Reviewed: Yes Labs/Studies Labs Reviewed: Reviewed by anesthesiologist Result Diagram: 01/24/19 0453 01/24/19 0453 test: N/A Studies: CXR, 2D Echo (EF 65%) Pre-procedure Exam Last vitals Vital Signs Date Temp Pulse Resp B/P (MAP) Pulse Ox O2 O2 Flow FiO2 Time Delivery Rate 01/25/19 98.1 63 18 116/57 98 Room Air 15:35 (76) 01/21/19 2.0 13:25 Airway: Adequate mouth opening Mallampati: Mallampati II Teeth: Normal Lung: Normal Heart: Normal ASA Physical Status ASA physical status: 3 Emergency: None Planned Anesthetic General/MAC: MAC Pre-operative Attestations Prior to commencing anesthesia and surgery, the patient was re-evaluated, there was verification of: *The patient's identity *The results of appropriate recent lab work and preoperative vital signs *The above evaluation not changing prior to induction *Anesthetic plan, risk benefits, alternative and complications discussed with patient/family; questions answered; patient/family understands, accepts and wishes to proceed. SHIREEN PATTON Jan 25, 2019 17:32
--- NOTE | 2019-01-25 18:57 | PN ---
DATE: 01/25/2019 Patient seen. Discharge was canceled due to patient's abnormal CT scan of the abdomen and pelvis whi ch showed unfortunately a question of concentric partially obstructing mass in the right colon. Vazquez elation with colonoscopy suggested as the patient already had a colonoscopy with poor prep. The coretta ent to be prepped for another colonoscopy tomorrow. We are doing a two-day prep. The patient is in agreement, as patient had elevated CEA. The patient does have anemia. Also, the CAT scan did report patient had a cirrhotic liver but no mass or biliary obstruction noted. PHYSICAL EXAMINATION: VITAL SIGNS: Temperature is 98.1, pulse 63, respirations 18, blood pressure 116/57, saturation 98% o n room air. GENERAL: The patient is in no acute distress. HEENT: Normocephalic, atraumatic. CARDIOVASCULAR: S1, S2, regular rate. LUNGS: Clear. ABDOMEN: Soft. EXTREMITIES: No clubbing. Also, the patient is obese and pale. LABORATORY DATA: No new labs today. Labs yesterday were all reviewed. The patient's current medications include: 1. Baclofen 10 mg daily. 2. Lopressor 50 b.i.d. 3. Nitroglycerin p.r.n. 4. Lotrimin cream b.i.d. 5. Amitiza 24 mcg b.i.d. 6. Norvasc 5 mg b.i.d. 7. Hydralazine 25 t.i.d. 8. Synthroid 50 mcg daily. 9. Ambien 5 mg. p.r.n. 10. Aspirin 81 daily. 11. Celexa 20 mg daily. 12. Neurontin 300 t.i.d. 13. Claritin 10 mg daily. 14. Rocephin 1 g q.24 hours. 15. Protonix 40 mg daily. 16. Tylenol p.r.n. 17. [place] p.r.n. 18. Morphine p.r.n. 19. Colace p.r.n. ASSESSMENT AND PLAN: This is a 68-year-old female with history of congestive heart failure , hypertension, CHF, COPD, hypothyroidism, diabetes mellitus, presented with encephalopathy, acute re nal failure, urinary tract infection and anemia. Our plan is as follows: 1. Respiratory stable. No evidence of fluid overload state. Continue O2. 2. Cardiovascular. Vitals otherwise stable. Continue beta blockers, aspirin for cardiac protection . 3. Hypothyroidism, on Synthroid. 4. Questionable cirrhosis. No evidence of mass. May check alpha fetoprotein. 5. Anemia, status post 1 unit of PRBC, will proceed with a colonoscopy tomorrow due to a possible co lonic mass with elevated CEA. Continue Protonix for now. 6. Acute renal failure, resolved. 7. Generalized body aches. Physical therapy as tolerated. 8. Urinary tract infection. Still treated with Rocephin, may discontinue antibiotics. 9. Continue with bowel prep. DISPOSITION: Pending colonoscopy results. We will follow. Dictated By: CHASITY PHILIP/JONAS Conf#: [id number] DID#: [id number]
[2019-01-25 19:45] VITALS: BP 118/69; PULSE 63; RESP 18
[2019-01-26] VITALS (10 sets, daily range): BP systolic 90–133; BP diastolic 37–69; PULSE 57–62; RESP 8–18
[2019-01-26] MEDS: PANTOPRAZOLE (EC) 40 MG TAB PO SCH (06:00)
[2019-01-26] MEDS: LEVOTHYROXINE 50 MCG TAB PO SCH (07:00)
[2019-01-26] MEDS ORDERED: PROPOFOL 20 ML ONE ×2 (07:41→08:10)
[2019-01-26] MEDS ORDERED: METOCLOPRAMIDE 10 MG INJ IV PRN (08:00)
[2019-01-26] MEDS ORDERED: FENTAnyl 50 MCG/ML VIAL IV PRN ×2 (08:00)
[2019-01-26] MEDS ORDERED: LABETALOL HCL 20MG INJ IV PRN (08:00)
[2019-01-26] MEDS ORDERED: HYDROmorphONE 1 MG/5 ML IV SYRINGE IV PRN ×2 (08:00)
[2019-01-26] MEDS ORDERED: EPHEDrine 25 MG/5 ML SYG IV PRN (08:00)
[2019-01-26] MEDS ORDERED: ONDANSETRON 4 MG INJ IV PRN (08:00)
--- NOTE | 2019-01-26 08:19 | PAC ---
Date/Time of Note Date/Time of Note DATE: 01/26/19 TIME: 08:19 Post-Anesthesia Notes Post-Anesthesia Note Last documented vital signs Vital Signs Date Temp Pulse Resp B/P (MAP) Pulse Ox O2 O2 Flow FiO2 Time Delivery Rate 01/26/19 97.4 62 18 117/55 97 Room Air 08:13 (75) Activity: WNL Respiratory function: WNL Cardiovascular function: WNL Mental status: Baseline Pain reasonably controlled: Yes Hydration appropriate: Yes Nausea/Vomiting absent: Yes BABS MANCILLA MD Jan 26, 2019 08:19
[2019-01-26] MEDS: CITALOPRAM 20 MG TAB PO SCH (09:00)
[2019-01-26] MEDS: LORATADINE 10 MG TAB PO SCH (09:00)
[2019-01-26] MEDS: GABAPENTIN 300 MG CAP PO SCH ×2 (09:00→12:47)
[2019-01-26] MEDS: ASPIRIN (EC) 81 MG TAB PO SCH (09:00)
[2019-01-26] MEDS: LUBIPROSTONE 24 MCG CAP PO SCH (09:00)
[2019-01-26] MEDS: BACLOFEN 10 MG TAB PO SCH ×2 (09:00→12:47)
[2019-01-26] MEDS: FLUTICASONE/VILANTEROL 100-25 INH SCH (09:01)
[2019-01-26] MEDS: CLOTRIMAZOLE 1% 30 GM CR TOP SCH (09:01)
[2019-01-26] MEDS: METOPROLOL 50 MG TAB PO SCH (09:01)
[2019-01-26] MEDS: BALSAM PERU/CASTOR OIL 60 GM TUBE TOP SCH (09:01)
[2019-01-26] MEDS: HYDROCODONE/APAP (5/325) TAB PO PRN ×2 (09:10→15:15)
--- NOTE | 2019-01-26 12:03 | PN ---
DATE: 01/26/2019 SUBJECTIVE: The patient is stable. No events overnight. OBJECTIVE: VITAL SIGNS: Blood pressure is 117/55, pulse 62, respirations 18, temperature 97.4. HEENT: Head is normocephalic. NECK: Supple. HEART: Regular rate. LUNGS: Show diminished breath sounds at the base. ABDOMEN: Soft, nontender to palpation without rebound or guarding. EXTREMITIES: Negative for clubbing, cyanosis. Trace edema. DERMATOLOGIC: No rashes. MUSCULOSKELETAL: No joint effusion. NEUROLOGIC: No change in exam. MEDICATIONS: Have been reviewed. LABORATORY DATA: Has been reviewed. IMAGING STUDIES: Have been reviewed. ASSESSMENT AND PLAN: 1. Nonoliguric acute kidney injury, etiology is secondary to hemodynamics. Renal function is improv ed. Continue to monitor. 2. Anemia. Monitor hemoglobin and hematocrit levels. 3. Mineral bone disorder. Monitor calcium and phosphorus levels. 4. Urinary tract infection. The patient is completing antibiotic course. 5. Occult gastrointestinal bleed. The patient is status post colonoscopy with inadequate prep. Con tinue to monitor. Follow up with Public Safety Telecommunicator. 6. Questionable colonic tumor. The patient has elevated CEA, again we will follow up with Gastroent erologist with possible repeat colonoscopy. 7. Depression of cirrhosis. Continue to monitor. Dictated By: BRANDON COLLINS/JONAS Conf#: [id number] DID#: [id number]
--- NOTE | 2019-01-26 14:21 | PDOCDIS ---
Discharge Instructions CONDITION [id number] Patient Condition: [id number] Stable HOME CARE INSTRUCTIONS: [id number] Diet Instructions: [id number] Regular ACTIVITY: Ffxtb2Ls Activity Restrictions: [id number] Slowly Increase Activity Rest between Activity Avoid heavy lifting Do not Drive Do not operate Machinery FOLLOW UP/APPOINTMENTS Follow-up Plan [facility], see reconciliation CHASITY MCKEON MD Jan 26, 2019 14:21
--- NOTE | 2019-01-27 06:31 | DS ---
DATE OF ADMISSION: 01/17/2019 DATE OF DISCHARGE: 01/26/2019 REASON FOR ADMISSION: Encephalopathy, acute renal failure, UTI, metabolic acidosis. HOSPITAL COURSE: See also discharge summary dictated 2 days ago on 01/24/2019. HOSPITAL COURSE: The patient is a 68-year-old overweight female with history of hypertension, anxiety disord er, chronic pain syndrome, COPD, depression, [place], CHF, neuropathy, diabetes mellitus, hypothyroidism, psychiatric disorder who resides at the ____ facility. The patient was noted to be weaker with incre ased body ache and complaining of chest pain. Upon discussion with home health, it was decided to se nd her to the hospital. In the ER, she was evaluated and was found to have elevated BUN and creatinine of 60/4.56. Potassium was high at 5.6. She was found to have UTI. The patient was hydrated with IV fluids and ultimately admitted for antibiotics with Rocephin. During her stay, she was seen by multiple physicians including Dr. [place]ri[place], the [facility] [place]; Dr. Sincere dean, the GI specialist. The patient was found to have positive occult blood in the stool. Ultimatel y, she underwent an EGD which showed normal duodenum and ampulla, but a colonoscopy was nondiagnostic due to poor prep. The patient's kidney function improved nicely from a creatinine of 4.56 to 1.08. In addition, she was noted to be anemic where she required 1 unit of PRBC. Urine culture ultimately showed E. coli sensitive to Rocephin and she was on it for [address] Sinclair pursued a CT scan of the abdomen and pelvis due to anemia and it showed cirrhotic liver with no mass, no evidence of bilia ry obstruction, cholelithiasis, question concentric partially obstructing mass in the right colon; co rrelation with colonoscopy suggested, hysterectomy, status post open reduction internal fixation of t he left subcapital femoral neck fracture and vascular calcification. Due to those findings, the coretta ent underwent another colonoscopy today which showed chronic ulcer prececal area going all the way to the inferior tip of the IC valve. A biopsy was obtained. Diverticulosis of the left side of the co thierno, ____ was good. Also, diverticulosis of the large intestine. Most likely her anemia is partly d ue to cirrhosis. Alpha fetoprotein was ordered and was within normal limits at 6.5. The patient is doing better, but definitely need physical therapy for ambulation. The patient discharged to correction facility at [facility]. I discussed with her PCP, Dr. Alexia Stafford. DISCHARGE MEDICATIONS: The patient was discharged with: 1. Tylenol 650 q.6 h. p.r.n. 2. Norvasc 5 mg daily. 3. Aspirin 81 mg daily, to be held for 2 weeks due to the above ulceration. 4. Baclofen 10 mg t.i.d. 5. ____ as directed b.i.d. 6. Rocephin discontinued. 7. Celexa 20 mg daily. 8. Lotrimin cream as directed. 9. Colace 100 q.12. 10. Breo 100/25 daily. 11. Gabapentin 300 mg t.i.d. 12. Hydralazine 25 t.i.d. which we can discontinue as she had better blood pressure. 13. [place] 5/325 q.6 p.r.n. 14. Synthroid 50 mcg daily. 15. Claritin 10 mg daily. 16. Amitiza 24 mcg daily. 17. Milk of magnesia daily as needed. 18. Lopressor 50 mg b.i.d. 19. Protonix 20 mg daily. 20. Zofran p.r.n. 21. Nitroglycerin p.r.n. 22. Ambien 5 mg at bedtime p.r.n. insomnia. 23. Levaquin 500 mg daily, we can actually discontinue that as she finished a course for UTI. 24. Ferrous sulfate 325 mg daily. 25. ____ 20 daily. 26. Seroquel 25 mg at bedtime. FINAL DIAGNOSES: 1. Acute encephalopathy, likely toxic metabolic. 2. Acute renal failure. 3. Metabolic acidosis. 4. Urinary tract infection. 5. Anemia of chronic disease. 6. Iron deficiency anemia. 7. Cirrhotic liver per CAT scan. 8. History of remote cerebrovascular accident per CAT scan of the brain. 9. Hypertension. 10. Tendency for congestive heart failure. 11. History of myocardial infarction. 12. Atherosclerotic cardiovascular disease. 13. Chronic obstructive pulmonary disease, compensated, on Breo. 14. Depression. 15. Chronic pain syndrome. 16. Diabetic neuropathy. 17. Diabetes mellitus. 18. Hypothyroidism. 19. Psychiatric disorder. 20. Generalized body ache, chronic pain syndrome. 21. Duodenal ulcer. 22. Mild elevated CEA 6.4. 23. Obese state, weight loss is advised. 24. Participation with physical therapy is advised. ____ VITAL SIGNS: Stable. Temperature 97.7, pulse 60, respirations 18, blood pressure is 122/60, ox ygen saturation 100% DISPOSITION: The patient agrees with plan of care and disposition planning to a correction faci lity for physical therapy. The patient to follow up with her PCP at the facility. CONDITION ON DISCHARGE: The patient discharged in fair condition. DIET: Again ADA 1800, low fat, low carbohydrate diet. ACTIVITY: As tolerated. Dictated By: CHASITY PHILIP/JONAS Conf#: [id number] DID#: [id number]
== END 2019-01-26 19:40 | DRG 682 ==
LOC: E/R 20:58 → 6WM 23:00 → CANRESERV 01-18 01:05 → E/R 01-18 01:27 → MS1 01-20 23:52
PROVIDERS: ADMIT Internal Medicine; ATTEND Internal Medicine
PROC: 30233N1 Transfusion of Nonautologous Red Blood Cells into Peripheral Vein, Percutaneous Approach (ICD-10-PCS; 2019-01-18)
PROC: 0DB68ZX Excision of Stomach, Via Natural or Artificial Opening Endoscopic, Diagnostic (ICD-10-PCS; principal; 2019-01-21 12:00)
PROC: 0DBK8ZX Excision of Ascending Colon, Via Natural or Artificial Opening Endoscopic, Diagnostic (ICD-10-PCS; 2019-01-21 12:00)
PROC: 0DBK8ZX Excision of Ascending Colon, Via Natural or Artificial Opening Endoscopic, Diagnostic (ICD-10-PCS; 2019-01-26)
DX: N17.9 Acute kidney failure, unspecified (principal); G93.41 Metabolic encephalopathy; N39.0 Urinary tract infection, site not specified; E87.2 Acidosis; I13.0 Hypertensive heart and chronic kidney disease with heart failure and stage 1 through stage 4 chronic kidney disease, or unspecified chronic kidney disease; K63.3 Ulcer of intestine; N18.9 Chronic kidney disease, unspecified; F41.9 Anxiety disorder, unspecified; G89.4 Chronic pain syndrome; J44.9 Chronic obstructive pulmonary disease, unspecified; F32.9 Major depressive disorder, single episode, unspecified; I25.2 Old myocardial infarction; E11.40 Type 2 diabetes mellitus with diabetic neuropathy, unspecified; E03.9 Hypothyroidism, unspecified; I50.9 Heart failure, unspecified; K74.60 Unspecified cirrhosis of liver; D63.8 Anemia in other chronic diseases classified elsewhere; D50.9 Iron deficiency anemia, unspecified; E87.5 Hyperkalemia; E83.42 Hypomagnesemia; R19.5 Other fecal abnormalities; K29.70 Gastritis, unspecified, without bleeding; K57.90 Diverticulosis of intestine, part unspecified, without perforation or abscess without bleeding; F99 Mental disorder, not otherwise specified; K59.00 Constipation, unspecified; D69.6 Thrombocytopenia, unspecified; I25.10 Atherosclerotic heart disease of native coronary artery without angina pectoris; E11.22 Type 2 diabetes mellitus with diabetic chronic kidney disease; E66.9 Obesity, unspecified; B96.20 Unspecified Escherichia coli [E. coli] as the cause of diseases classified elsewhere; Z68.28 Body mass index [BMI] 28.0-28.9, adult; Z86.73 Personal history of transient ischemic attack (TIA), and cerebral infarction without residual deficits; Z99.3 Dependence on wheelchair
CPT/HCPCS: 36415; 36430; 70450; 71045; 74176; 76775; 80048; 80053; 80061; 80307; 81001; 81003; 82043; 82105; 82270; 82306; 82378; 82570; 82607; 82652; 82746; 82962; 83036; 83540; 83605; 83735; 83970; 84100; 84155; 84156; 84165; 84166; 84300; 84443; 84484; 85025; 85045; 85610; 85730; 86320; 86325; 86850; 86900; 86901; 86920; 87045; 87081; 87086; 88305; 88312; 93005; 93306; 96360; 97110; 97116; 97162; 97530; J0696; J0744; J1644; J2270; J2310; J2405; J2916; J3475; J7030; J7050; P9016; Q9967

== ENCOUNTER 2019-01-29 13:03 | Inpatient (IN) | payer MEDICARE, OTHER ==
[~2019-01-29] VITALS: Ht 162.6 cm; Wt 72.5 kg
[~2019-01-29 13:03] MED LIST changes: -BISA5TAB6 PO; -CALC1TAB79 PO; -CLON-379 PO; -CLON1PAT TD; -ESOM40CA PO; -FURO20TA3 PO; -LISI-313 PO; -METF100010 PO; -MULT1TAB67 PO; -NA P133E10 RC; -TRA100 PO
[2019-01-29 20:15] VITALS: Ht 162.6 cm; Wt 72.5 kg
[2019-02-02 15:43] VITALS: BP 134/61; PULSE 59; RESP 18
== END 2019-02-02 19:40 | DRG 871 ==
LOC: E/R 13:03 → TEL 13:26 → MS1 02-02 04:00
PROVIDERS: ADMIT Internal Medicine; ATTEND Internal Medicine
PROC: 30233N1 Transfusion of Nonautologous Red Blood Cells into Peripheral Vein, Percutaneous Approach (ICD-10-PCS; 2019-01-30)
PROC: 0DD68ZX Extraction of Stomach, Via Natural or Artificial Opening Endoscopic, Diagnostic (ICD-10-PCS; principal; 2019-01-31)
DX: A41.9 Sepsis, unspecified organism (principal); K29.71 Gastritis, unspecified, with bleeding; K25.0 Acute gastric ulcer with hemorrhage; K92.0 Hematemesis; D62 Acute posthemorrhagic anemia; N39.0 Urinary tract infection, site not specified; I13.0 Hypertensive heart and chronic kidney disease with heart failure and stage 1 through stage 4 chronic kidney disease, or unspecified chronic kidney disease; K92.1 Melena; K44.9 Diaphragmatic hernia without obstruction or gangrene; B19.20 Unspecified viral hepatitis C without hepatic coma; E66.9 Obesity, unspecified; E11.22 Type 2 diabetes mellitus with diabetic chronic kidney disease; E11.40 Type 2 diabetes mellitus with diabetic neuropathy, unspecified; E03.9 Hypothyroidism, unspecified; F32.9 Major depressive disorder, single episode, unspecified; F99 Mental disorder, not otherwise specified; G89.4 Chronic pain syndrome; I50.9 Heart failure, unspecified; J44.9 Chronic obstructive pulmonary disease, unspecified; K74.60 Unspecified cirrhosis of liver; N18.9 Chronic kidney disease, unspecified; Z87.891 Personal history of nicotine dependence; Z68.27 Body mass index [BMI] 27.0-27.9, adult; Z79.82 Long term (current) use of aspirin
CPT/HCPCS: 36415; 36430; 71045; 74177; 80053; 81003; 82962; 83605; 83735; 84100; 84484; 85014; 85018; 85025; 85610; 85730; 86703; 86803; 86850; 86900; 86901; 86920; 87081; 87086; 87340; 88305; 88312; 93005; A4310; C9113; J0692; J1815; J2060; J2270; J2405; J3010; J3370; J7030; P9016; Q9967